=== PATIENT | female | born 1940 | race Caucasian/White ===

== ENCOUNTER 2019-08-16 15:07 | Inpatient (IN) | payer MEDICARE ==
[~2019-08-16] VITALS: Ht 175.3 cm; Wt 80.5 kg
--- OUTSIDE RECORDS SUMMARY | 2019-08-16 15:10 | XMS REPORT | Summary of Care ---
Author Author [facility] Organization [facility] Address Unknown Phone Unavailable Care Team Providers Care Geometrician Name Role Phone Ghassan Dillon PCP Yadira Florez MD Unavailable Unavailable Reason for Referral * Radiology Services (Routine) Referred By Contact Referred To Contact Status Reason Specialty Diagnoses / Procedures Yadira Florez MD [facility] [address] [address] [place], Radiology [address] [place] [id number] Pending Radiology Diagnoses CLL (chronic lymphocytic leukemia) P rocedures CT NECK W CONTRAST * Radiology Services (Routine) Referred By Contact Referred To Contact Status Reason Specialty Diagnoses / Procedures Yadira Florez MD [facility] [address], [address] [address] [place], Radiology [address] [place] [id number] Pending Radiology Diagnoses CLL (chronic lymphocytic leukemia) P rocedures CT CHEST ABDOMEN PELVIS W CONTRAST Reason for Visit * Reason Comments Follow Up Encounter Details Care Team Description Date Type Department Yadira Florez MD [facility] [address] [address] [phone] Follow Up 03/03/2019 Office Visit [facility] Hematology and Oncology [address] [place] [phone] Allergies Comments Active Allergy Reactions Severity Noted Date Reaction as child - not sure of reaction but thinks it was "asthma like" Sulfa Antibiotics Shortness Of High 06/20/2010 Breath Sulfasalazine Shortness Of High 08/30/2016 Breath documented as of this encounter (statuses as of 03/03/2019) Medications End Date Status Medication Sig Dispensed Refills Start Date Active Multiple Take by 0 Vitamins-Minerals mouth. (CENTRUM SILVER PO) Active metFORMIN 1000 MG TB24 Take 500 mg 0 by mouth two times daily. Active Cholecalciferol (VITAMIN Take 1 Tab by 0 D-3 OR) mouth daily. Active Iron TABS Take 65 mg by 0 mouth daily. Active [place] 3 1000 MG Take 1,000 mg 0 CAPSIndications: CLL by mouth (chronic lymphocytic daily. leukemia) Active metoprolol (TOPROL XL) 25 Take 1 Tab by 90 Tab 3 MG XL tabletIndications: mouth daily. 8 PAF (paroxysmal atrial fibrillation) Active Rivaroxaban 15 MG TABS Take 1 Tab by 90 Tab 1 mouth daily. 8 Active pravastatin (PRAVACHOL) 0 10 MG tablet 8 Active pantoprazole (PROTONIX) Take 1 Tab by 90 Tab 3 40 MG tablet mouth daily. 8 Active Take by 0 Qcddulur-Dvr-Yc-FA mouth daily. ( VITAMINS OR) Active digoxin (LANOXIN) 125 MCG TAKE ONE 30 Tab 2 tabletIndications: CLL TABLET BY 8 (chronic lymphocytic MOUTH ONE leukemia) TIME DAILY Active metoprolol (LOPRESSOR) 25 0 MG tablet 9 Active aspirin EC 81 MG TBEC Take 81 mg by 0 mouth. Active ferrous sulfate 325 (65 Take 325 mg 0 Fe) MG tablet by mouth daily. Active Insulin Detemir (LEVEMIR Inject 10 0 FLEXTOUCH) 100 UNIT/ML Units into 8 SOPN the skin. Active cyanocobalamin 100 MCG Take 100 mcg 0 tablet by mouth. 03/20/2019 Active VENCLEXTA 10 MG TABS Take 20 mg by 30 Tab 0 mouth daily 9 for 7 days, THEN 50 mg daily for 7 days, THEN 100 mg daily for 7 days, THEN 200 mg daily for 7 days, THEN 400 mg daily for 7 days. documented as of this encounter (statuses as of 03/03/2019) Active Problems Problem Noted Date Autoimmune hemolytic anemia 06/23/2016 CLL (chronic lymphocytic leukemia) 06/15/2016 Arthritis of knee, right 01/19/2016 Right knee DJD 01/19/2016 Follicular conjunctivitis 04/08/2014 Vitreous syneresis 04/08/2014 Diabetes mellitus type 2 without retinopathy 09/27/2012 Cataract 09/27/2012 Rash and nonspecific skin eruption 09/27/2012 Eye redness 09/27/2012 Dry eye syndrome 09/27/2012 Neurotic excoriations 09/27/2012 Asthma 09/23/2012 documented as of this encounter (statuses as of 03/03/2019) Social History Date Tobacco Use Types Packs/Day Years Used Quit: 09/23/1974 Former Smoker 1 10 Smokeless Tobacco: Former User Drinks/Week oz/Week Comments Alcohol Use 1 Glasses of wine 0.6 every three months Yes Sex Assigned at Date Recorded Not on file Industry Job Start Date Occupation Not on file Not on file Not on file Travel End Travel History Travel Start No recent travel history available. documented as of this encounter Last Filed Vital Signs Reading Time Taken Comments Vital Sign 156/93 03/03/2019 1:06 PM CDT Blood Pressure 101 03/03/2019 1:06 PM CDT Pulse 36.9 C (98.5 F) 03/03/2019 1:06 PM CDT Temperature - - Respiratory Rate - - Oxygen Saturation - - Inhaled Oxygen Concentration 80.3 kg (177 lb) 03/03/2019 1:06 PM CDT Weight 172.7 cm (5' 8") 03/03/2019 1:06 PM CDT Height 26.91 03/03/2019 1:06 PM CDT Body Mass Index documented in this encounter Patient Instructions * Patient Instructions* Yadira Florez MD - 03/03/2019 1:20 PM CDT RTC in 3 months with preclinic CBC., CMP scans and phos and uric acid levels. documented in this encounter Progress Notes * Yadira Florez MD - 03/03/2019 1:20 PM CDT FOLLOW-UP PATIENT VISIT NOTE [facility] RFC: CLL progression INTERIM HISTORY: feels about the same. Her cough is better overall with mucinex. Weight is stable, appetite good and overall in better spiritis. We learnt that the path demonstrates SLL only no Large cell transformation. P53 studies pending . HISTORY OF PRESENT ILLINESS: This is a 79 y.o. female with DM, HTN and a diagnos is of CLL since 2008 now on treatment for rapidly progresive disease 04/2009: noted on blood counts that she had a high WBC and noted to have CLL wit h trisomy 12 (standard CLL prognosis)on flow of blood. CT scans at the time note d lymph nodes in her abdomen and chest but Porter stage I so observed only (WBC nimco un 26). Last seen by Dr. Machado in 05/2014: was about 56 09/2015: Continued progression in WBCs now with counts of 99 and a decrease in Hb to 10.7. 01/2016: Had an uncomplicated knee replacement, however she never really recovere d her energy 05/2016: Saw PCP was told her WBC is much higher and that she should see [facility] [place] 06/15/16: WBC 186, Hb: 7 with high LDH and a slightly higher T. Bili, pending Co ombs test 06/28/16: Bone marrow exam: negative for transformation, involved with CLL, low iron stores 08/03/16: WBC back to baseline today at 97, and improved symptoms. She has done t he FOBT test but at a [facility] and we are looking for the results, Hb is also adrián r 09/01/16: Called to say her low energy is back and that she would like to increas e her prednisone as that seemed to help with her energy levels in the past. So w e increased to 40 mg a day from 20 mg a day 09/14/16: In clinic today with mild improvement in her energy levels but stil sinc e May has had lower energy levels. Her WBCs are well controlled and Hb is b pk to 9.6, but now she has an elevated glucose level concerning for steroid i nduced DM. 10/12/16: Has completely stopped taking the prednisone as her energy levels are b ack to baseline, also now has a normal platelt count and also Hb of about 10, an d a dropping WBC count 05/11/17: Relapsed AIHA along with a rapid increase in WBCs, started on predniso ne 60 /day and planned to start chemo within a week. 05/15/17: 90 mg/m2, single dose (50% reduction in dose for age and degree of ane debbie), tolerated very well, no TLS, off allopurinol now) 06/19/17: Started ibrutinib and in 10 days she developed A Fib with RVR needing C [facility] admission at [facility] 08/15/16: Switched back to bendamustine after she developed AFib on ibrutinib, re ceived R and 2 days kai 09/13/17: Cycle 3 of kai planned 10/11/17: Got cycle 3 of Kai-R. 10/17/17: Hospitalized for hypoglycemia, because she was taking glimeperide as us ual, she was not eating very much after chemotherapy. So she was treated with IV fluids, but discovered that her platelets were unusually low to 1-2 after kai chemo. So she was placed on prednisone 40 mg a day and had 2 doses of IVIg and 2- 3 units of platelet transfusions and also a blood transfusion. She was noted to have antibodies to platelets (GP IIb IIIa and HLA). Chemo Held 11/28/17: CT staging demonstrates a near CR, CBC demonstrates normal platelet cou nts and also rising Hb to 9.5 02/2018: tapering prednisone for autoimmune cytopenias and she is tolerating this well. 01/2019: Returns to clinic after a year away from us (work got in the way), with recurrent weight loss, Afib with RVR requiring hospital stay and a recurrent cou gh as well. Scans demosntrate low volume LAD relapse along with lymphangitic spr ead within the lungs. 02/03/19: Not anemic, symptoms are largely under control except for the cough. 02/26/19: Axillary node biopsy, flow had non viable cells, pathology negative for large cell disease PAST MEDICAL SURGICAL, SOCIAL AND FAMILY HISTORY remains unchanged MEDICATIONS: Current Outpatient Medications: aspirin EC 81 MG TBEC, Take 81 mg by mouth., Disp: , Rfl: Cholecalciferol (VITAMIN D-3 OR), Take 1 Tab by mouth daily., Disp: , Rfl: cyanocobalamin 100 MCG tablet, Take 100 mcg by mouth., Disp: , Rfl: digoxin (LANOXIN) 125 MCG tablet, TAKE ONE TABLET BY MOUTH ONE TIME DAILY , Disp: 30 Tab, Rfl: 2 ferrous sulfate 325 (65 Fe) MG tablet, Take 325 mg by mouth daily., Disp: , Rfl: Insulin Detemir (LEVEMIR FLEXTOUCH) 100 UNIT/ML SOPN, Inject 10 Units into the skin., Disp: , Rfl: Iron TABS, Take 65 mg by mouth daily., Disp: , Rfl: metFORMIN 1000 MG TB24, Take 500 mg by mouth two times daily., Disp: , Rfl: metoprolol (LOPRESSOR) 25 MG tablet, , Disp: , Rfl: metoprolol (TOPROL XL) 25 MG XL tablet, Take 1 Tab by mouth daily., Disp: 9 0 Tab, Rfl: 3 Multiple Vitamins-Minerals (CENTRUM SILVER PO), Take by mouth., Disp: , Rf l: [place] 3 1000 MG CAPS, Take 1,000 mg by mouth daily., Disp: , Rfl: pantoprazole (PROTONIX) 40 MG tablet, Take 1 Tab by mouth daily., Disp: 90 Tab, Rfl: 3 pravastatin (PRAVACHOL) 10 MG tablet, , Disp: , Rfl: Sjsmcapr-Mya-Gd-FA ( VITAMINS OR), Take by mouth daily., Disp: , Rfl: Rivaroxaban 15 MG TABS, Take 1 Tab by mouth daily., Disp: 90 Tab, Rfl: 1 VENCLEXTA 10 MG TABS, Take 20 mg by mouth daily for 7 days, THEN 50 mg tobias y for 7 days, THEN 100 mg daily for 7 days, THEN 200 mg daily for 7 days, THEN 4 00 mg daily for 7 days., Disp: 30 Tab, Rfl: 0 REVIEW OF SYSTEMS: CONSTITUTIONAL: denies fevers or chills, low energy levels, loss of weight to 30 lbs. HEAD AND NECK: denies headaches, no thyroid disease or swellings in the neck. EAR NOSE and THROAT: blurry vision from DM retinopathy with floaters, double vis ion, dysphagia, odynophagia. LYMPH NODES: Has not noted lymph node swellings in the neck, under the arms or i n the groin region. CARDIOVASCULAR: No chest pains, palpitations, occasional swelling of the feet, p aroxysmal nocturnal dyspnea noted. Wheezing noted and occasional coarse inspirat ions. RESPIRATORY: Occasional cough, no hemoptysis, occasionally shortness of breath, denies wheezing, no sleep apnea. ABDOMEN: No abdominal pains, nausea or vomiting, hematemesis. Denies melena, ble eding stools. No cramps or constipation. MUSCULOSKELETAL: Full range of movement across all joints, denies myalgias or jony int pains. Denies back or bone pains. EXTREMITIES: Now has mild increase in swelling in bilateral lower extremities. PHYSICAL EXAM: Vitals: 03/03/19 1306 BP: (!) 156/93 BP Location: left arm Patient Position: Sitting Pulse: 101 Temp: 98.5 F (36.9 C) TempSrc: Oral Weight: 177 lb (80.3 kg) Height: 5' 8" (1.727 m) GENERAL: Afebrile, alert and oriented to person, place and time, sitting comfort ably. EYES: Extraocular movements are intact, pupils are equal round and reactive to l ight and accomodation. Anicteric sclera, pallor 1+ LYMPH NODES: multiple palpable submental,cervical and supraclavicular LAD on tod ays exam is not enlarged CARDIOVASCULAR: S1 and S2 are heard and Irregular rate rythym. DESIRAE at the LUSB noted no rubs or gallops are heard. RESPIRATORY: Clear lungs to auscultation bilaterally, no rales, ++ rhonchi now p redominantly in the Left upper and lower lung bernstein, no rubs heard. GASTROINTESTINAL: No oral lesions, abdomen is non-tender, not distended, no flui d thrill. Palpable splenomegaly to 2 cm below the costal margin with mild hepato megaly noted today. Liver span is 12 cm. Bowel sounds are present. EXTREMITIES: No clubbing, cyanosis or no pitting edema noted. SKIN: No rashes, scars, ulcers or bruises noted MUSCULOSKELETAL: No knee crepitus, full range of motion at the elbows, knees and ankles noted. No spinal tenderness noted. ASSESSMENT: 79 year old lady with CLL Porter stage III (lymphadenopathy and mild an emia), DM and HTN. 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 She could not tolerate imbruvica because of RVR with A fib whi ch is an ongoing problem. Last visit she returned to see us with clear recurrenc e of symptoms for relapse. We then confirmed these findings with CT scans last w lumbee. Now we have done a biopsy to rule out p53 del disease, but so far has no la rge cell transformation. Despite her 40 lb weight loss and cough that might be r elated to the SLL, she would favor observation only without treatment with venet oclax.She thinks her current QOL is reasonable and is worried about the potentia l effects of venetoclax such as TLS. She now has drug that is approved. So we pl an on repeating Ct scans in 3 months and see her in clinic then. If she worsens or develops new symptoms she knows to contact us so that we can start treatment MIRANDA. Anemia: previously was AIHA, todays Hb pending, but was >11 in the hospital 1 week ago Cough: worry that this is from disease progression based on scans, yet we monica l see her back in 4 weeks to see if this has improved, in which case it could be because eof a lingering infection DM/HTN: continue management through her primary care physician. On insulin no w, but needs close monitoring of levels daily which she was not doing prior to h er hospitalization for the hypoglycemia. As we drop prednisone dose now I have i nstructed to lower the insulin dose based on daily monitoring numbers. A fib: Sees Dr. Turner, on Toprol and Dig and xarelto stable for now. Please check: CBC with diff, CMP, uric acid, magnesium, phosphorus and CT N/C/A/ P preclinic in 3 months. Yadira Florez MD Hematology/Oncology documented in this encounter Plan of Treatment Order Schedule Name Type Priority Associated Diagnoses 1 Occurrences starting 03/03/2019 until 03/03/2020 CT CHEST ABDOMEN PELVIS W Imaging Routine CLL (chronic lymphocytic CONTRAST leukemia) 1 Occurrences starting 03/03/2019 until 10/02/2019 CT NECK W CONTRAST Imaging Routine CLL (chronic lymphocytic leukemia) Health Maintenance Due Date Last Done Comments MEDICARE AWV 1940 TETANUS SHOT (ADULT) 02/03/1955 ANNUAL DIABETIC FOOT EXAM 02/03/1958 BMI FOLLOW UP PLAN 02/03/1958 FALL SCREEN 02/03/2005 OSTEOPOROSIS SCREENING 02/03/2005 PNEUMOVAX >=65 (PPSV23) 02/03/2005 PREVNAR >=65 (PCV13) 02/03/2005 ANNUAL DIABETIC 04/08/2015 04/08/2014, 09/27/2012 RETINOPATHY SCREENING FLU VACCINE > 6 MONTHS 02/13/2019 documented as of this encounter Results Not on filedocumented in this encounter Visit Diagnoses Diagnosis CLL (chronic lymphocytic leukemia) - Primary Chronic lymphoid leukemia, without mention of having achieved remission documented in this encounter Insurance Type Payer Benefit Subscriber ID Effective Phone Address Plan / Dates Group Medicare [employer] MEDICARE xxxxxxxx 2018-P [address] PPO - resent [id number] [place] [address] documented as of this encounter
--- OUTSIDE RECORDS SUMMARY | 2019-08-16 15:11 | XMS REPORT ---
[facility] Address Unknown Phone Unavailable Care Team Providers Care Earth Science Technician Name Role Phone MALIHA NAGY Unavailable Unavailable MONTY, ARIF Unavailable Unavailable LULLA, NALLELY PREMAL Unavailable Unavailable JAMAR DRAKE Unavailable Unavailable BEREKET PAIZ Unavailable Unavailable Alis WOODS Unavailable Unavailable Problems This patient has no known problems. Allergies, Adverse Reactions, Alerts This patient has no known allergies or adverse reactions. Medications This patient has no known medications. Results Test Description Test Time Test Comments Text Results Atomic Results Result Comments BLOOD CULTURE 2019-07-27 13:43:00 CULTURE (BEAKER) (test icqk=9268) No growth in 5 days SPUTUM CULTURE + GRAM [id number] 14:49:00* Test Item Value Reference Range Comments CULTURE (BEAKER) (test zsuw=5581) See comment GRAM STAIN RESULT (BEAKER) (test dblv=2773) 1+ WBCs GRAM STAIN RESULT (BEAKER) (test btab=32415) 0-5 epithelial cells GRAM STAIN RESULT (BEAKER) (test ovtd=202014) <1+ gram negative rods GRAM STAIN RESULT (BEAKER) (test hzzl=064987) <1+ gram negative coccobacilli GRAM STAIN RESULT (BEAKER) (test imez=014761) <1+ gram positive cocci in chains 2+ Normal respiratory fe presentPOCT-GLUCOSE [id number] 12:25:00* Test Item Value Reference Range Comments POC-GLUCOSE METER (BEAKER) (test ulqu=5860) 110 mg/dL 70-110 : TESTED AT [facility] [address] [facility], [address]: Marine Electrician/Pipe Smoking Machine Offbearer WQ=[id number] for RUBIO, SUELLEN POCT-GLUCOSE [id number] 07:51:00* Test Item Value Reference Range Comments POC-GLUCOSE METER (BEAKER) (test bvne=8977) 128 mg/dL 70-110 : TESTED AT [facility] [address] [facility], [address]: Marine Electrician/Pipe Smoking Machine Offbearer HP=[id number] for SUELLEN RUBIO POCT-GLUCOSE [id number] 22:53:00* Test Item Value Reference Range Comments POC-GLUCOSE METER (BEAKER) (test dthq=3183) 212 mg/dL 70-110 : TESTED AT [place] [id number] [facility], [address]: Marine Electrician/Pipe Smoking Machine Offbearer GI=[id number] for Shannon Fountain POCT-GLUCOSE [id number] 18:00:00* Test Item Value Reference Range Comments POC-GLUCOSE METER (BEAKER) (test pxmz=6838) 161 mg/dL 70-110 : TESTED AT [address], [address]: Marine Electrician/Pipe Smoking Machine Offbearer OY=[id number] for QUINN HUSSEIN POCT-GLUCOSE [id number] 13:48:00* Test Item Value Reference Range Comments POC-GLUCOSE METER (BEAKER) (test qpxb=0122) 130 mg/dL 70-110 : TESTED AT [address], [address]: Marine Electrician/Pipe Smoking Machine Offbearer YW=[id number] for QUINN HUSSEIN HEMOGLOBIN [id number] 10:40:00* Test Item Value Reference Range Comments HEMOGLOBIN A1C (BEAKER) (test qdwb=435) 6.9 % 4.3-6.1 POCT-GLUCOSE [id number] 07:50:00* Test Item Value Reference Range Comments POC-GLUCOSE METER (BEAKER) (test xlyn=0328) 127 mg/dL 70-110 : TESTED AT [address], [address]: Marine Electrician/Pipe Smoking Machine Offbearer OE=[id number] for MARCO LIVINGSTON BASIC METABOLIC [id number] 06:32:00* Test Item Value Reference Range Comments SODIUM (BEAKER) (test muaa=002) 140 meq/L 136-145 POTASSIUM (BEAKER) (test quqm=721) 4.3 meq/L 3.5-5.1 CHLORIDE (BEAKER) (test jncd=589) 104 meq/L 98-107 CO2 (BEAKER) (test vdsz=080) 29 meq/L 22-29 BLOOD UREA NITROGEN (BEAKER) (test tclv=100) 16 mg/dL 7-21 CREATININE (BEAKER) (test ihbp=595) 1.04 mg/dL 0.57-1.25 GLUCOSE RANDOM (BEAKER) (test lctr=588) 151 mg/dL 70-105 CALCIUM (BEAKER) (test cwyq=173) 9.0 mg/dL 8.4-10.2 EGFR (BEAKER) (test xyyh=7777) 62 mL/min/1.73 sq m ESTIMATED GFR IS NOT ACCURATE CREATININE CLEARANCE IN PREDICTING GLOMERULAR FILTRATION RATE. ESTIMATED GFR IS NOT APPLICABLE FOR DIALYSIS PATIENTS. CBC (HEMOGRAM ONLY)2019-07-23 05:32:00* Test Item Value Reference Range Comments WHITE BLOOD CELL COUNT (BEAKER) (test tund=923) 8.4 K/ L 3.5-10.5 RED BLOOD CELL COUNT (BEAKER) (test hsre=884) 4.37 M/ L 3.93-5.22 HEMOGLOBIN (BEAKER) (test fsum=186) 11.3 GM/DL 11.2-15.7 HEMATOCRIT (BEAKER) (test hmxg=612) 37.5 % 34.1-44.9 MEAN CORPUSCULAR VOLUME (BEAKER) (test lbgf=555) 85.8 fL 79.4-94.8 MEAN CORPUSCULAR HEMOGLOBIN (BEAKER) (test fmhn=287) 25.9 pg 25.6-32.2 MEAN CORPUSCULAR HEMOGLOBIN CONC (BEAKER) (test lvfe=704) 30.1 GM/DL 32.2-35.5 RED CELL DISTRIBUTION WIDTH (BEAKER) (test mjag=648) 15.1 % 11.7-14.4 PLATELET COUNT (BEAKER) (test iwne=790) 204 K/CU MM 150-450 MEAN PLATELET VOLUME (BEAKER) (test dfwe=966) 12.5 fL 9.4-12.3 NUCLEATED RED BLOOD CELLS (BEAKER) (test fokn=945) 0 /100 WBC 0-0 POCT-GLUCOSE [id number] 21:35:00* Test Item Value Reference Range Comments POC-GLUCOSE METER (BEAKER) (test ueoh=8719) 151 mg/dL 70-110 : TESTED AT [facility] [address] [facility], [address]: Marine Electrician/Pipe Smoking Machine Offbearer IC=[id number] for Shannon Fountain POCT-GLUCOSE [id number] 18:09:00* Test Item Value Reference Range Comments POC-GLUCOSE METER (BEAKER) (test qdop=7623) 125 mg/dL 70-110 : TESTED AT [facility] [address] [facility], [address]: Marine Electrician/Pipe Smoking Machine Offbearer QD=[id number] for QUINN HUSSEIN RESPIRATORY PANEL [id number] 15:12:00* Test Item Value Reference Range Comments HUMAN METAPNEUMOVIRUS (BEAKER) (test zttl=1272) Not detected Not detected, Equivocal RHINOVIRUS (BEAKER) (test xpsc=5494) Not detected Not detected, Equivocal INFLUENZA A (BEAKER) (test ozbv=2558) Not detected Not detected, Equivocal INFLUENZA A (NO SUBTYPE) (test hznr=4486) INFLUENZA A SUBTYPE H1 (BEAKER) (test jyif=2546) INFLUENZA A SUBTYPE H3 (BEAKER) (test mwva=4900) INFLUENZA A SUBTYPE H1-2009 (BEAKER) (test bwcc=7755) INFLUENZA B (BEAKER) (test chgi=7750) Not detected Not detected, Equivocal RESPIRATORY SYNCYTIAL VIRUS (BEAKER) (test zjhy=8918) Not detected Not detected, Equivocal PARAINFLUENZA VIRUS 1 (BEAKER) (test zfoq=8537) Not detected Not detected, Equivocal PARAINFLUENZA VIRUS 2 (BEAKER) (test ntuk=1317) Not detected Not detected, Equivocal PARAINFLUENZA VIRUS 3 (BEAKER) (test clom=4086) Not detected Not detected, Equivocal PARAINFLUENZA VIRUS 4 (BEAKER) (test dldd=5964) Not detected Not detected, Equivocal ADENOVIRUS (BEAKER) (test rwxw=8086) Not detected Not detected, Equivocal CORONAVIRUS 229E (BEAKER) (test qmql=3651) Not detected Not detected, Equivocal CORONAVIRUS HKU1 (BEAKER) (test wsma=1172) Not detected Not detected, Equivocal CORONAVIRUS NL63 (BEAKER) (test vcqa=3561) Not detected Not detected, Equivocal CORONAVIRUS OC43 (BEAKER) (test cvqu=3730) Not detected Not detected, Equivocal BORDETELLA PERTUSSIS (BEAKER) (test lkbe=6465) Not detected Not detected, Equivocal CHLAMYDOPHILA PNEUMONIAE (BEAKER) (test djeo=5821) Not detected Not detected, Equivocal MYCOPLASMA PNEUMONIAE (BEAKER) (test cdsh=1337) Not detected Not detected, Equivocal Other viruses and bacteria not targeted by this PCR panel cannot be excluded; th erefore clinical correlation and follow up of serology, culture results, and oth er molecular studies is required. The results are not intended to be used as the sole means for clinical diagnosis or patient management decisions. This sample was tested at the [facility] Molecular Diagnostics Laboratory using the [employer] FilmA rray Respiratory Panel. It is FDA cleared and has been verified and approved by the [facility] Molecular Diagnostics Laboratory for clinical use on nasopharyngeal sw ab specimens.The performance of the FilmArray RP has not been established in ind ividuals who received influenza vaccine. Recent administration of a nasal influ stacie vaccine may cause false positive results for Influenza A and/orInfluenza B. POCT-GLUCOSE [id number] 14:27:00* Test Item Value Reference Range Comments POC-GLUCOSE METER (BEAKER) (test cneu=7028) 145 mg/dL 70-110 : TESTED AT [facility] [address] [facility], [address]: Marine Electrician/Pipe Smoking Machine Offbearer QC=[id number] for LIN MUNIZ POCT-GLUCOSE [id number] 11:59:00* Test Item Value Reference Range Comments POC-GLUCOSE METER (BEAKER) (test dyxc=4064) 185 mg/dL 70-110 : TESTED AT [facility] [address] [facility], [address]: Marine Electrician/Pipe Smoking Machine Offbearer HI=[id number] for LUCIO EATON BLOOD GAS, [id number] 06:07:00* Test Item Value Reference Range Comments PH VENOUS (BEAKER) (test qypf=912) 7.42 7.32-7.42 PCO2 VENOUS (BEAKER) (test orhi=392) 52 mmHg 41-51 PO2 VENOUS (BEAKER) (test tpnw=253) 15 mmHg 25-40 O2 SATURATION VENOUS (BEAKER) (test zcnk=609) 19.3 % 40.0-70.0 HCO3 VENOUS (BEAKER) (test pumt=837) 33 mmol/L 21-29 BASE EXCESS VENOUS (BEAKER) (test lqln=785) 7.1 mmol/L -2.0-3.0 PATIENT TEMPERATURE (BEAKER) (test xhbk=4879) 37.0 C FIO2 (BEAKER) (test mchh=5263) 100.0 % LACTIC ACID, [id number] 23:35:00* Test Item Value Reference Range Comments LACTATE BLOOD VENOUS (2) (BEAKER) (test uagn=4410) 1.0 mmol/L 0.5-2.2 Specimen slightly hemolyzed B-TYPE NATRIURETIC FACTOR (BNP)2019-07-21 23:28:00* Test Item Value Reference Range Comments B-TYPE NATRIURETIC PEPTIDE (BEAKER) (test qkmi=653) 157 pg/mL 0-100 TROPONIN [id number] 23:28:00* Test Item Value Reference Range Comments TROPONIN I (BEAKER) (test evii=925) < ng/mL 0.00-0.03 Troponin I (TnI) levels must be interpreted in the context of the presenting sym ptoms and the clinical findings. Elevated TnI levels indicate myocardial damage, but are not specific for ischemic heart disease. Elevated TnI levels are seen in patients with other cardiac conditions (including myocarditis and congestive h eart failure), and slight TnI elevations occur in patients with other conditions , including sepsis, renal failure, acidosis, acute neurological disease, and per sistent tachyarrhythmia.BASIC METABOLIC [id number] 23:19:00* Test Item Value Reference Range Comments SODIUM (BEAKER) (test yrgm=539) 141 meq/L 136-145 POTASSIUM (BEAKER) (test lhgg=561) 4.1 meq/L 3.5-5.1 CHLORIDE (BEAKER) (test agfl=614) 105 meq/L 98-107 CO2 (BEAKER) (test mptv=303) 29 meq/L 22-29 BLOOD UREA NITROGEN (BEAKER) (test cuci=272) 12 mg/dL 7-21 CREATININE (BEAKER) (test olud=770) 1.12 mg/dL 0.57-1.25 GLUCOSE RANDOM (BEAKER) (test cqrq=817) 196 mg/dL 70-105 CALCIUM (BEAKER) (test htqc=602) 9.7 mg/dL 8.4-10.2 EGFR (BEAKER) (test ocht=8876) 57 mL/min/1.73 sq m ESTIMATED GFR IS NOT ACCURATE CREATININE CLEARANCE IN PREDICTING GLOMERULAR FILTRATION RATE. ESTIMATED GFR IS NOT APPLICABLE FOR DIALYSIS PATIENTS. PROTHROMBIN TIME/[id number] 23:16:00* Test Item Value Reference Range Comments PROTIME (BEAKER) (test zika=994) 17.2 seconds 11.9-14.2 INR (BEAKER) (test amhx=276) 1.5 <=5.9 Effective 12/11/2018: PT Reference Range ChangeNew: 11.9-14.2 Previous: 11.7-14. 7RECOMMENDED COUMADIN/WARFARIN INR THERAPY RANGESSTANDARD DOSE: 2.0-3.0 Include s: PROPHYLAXIS for venous thrombosis, systemic embolization; TREATMENT for venou s thrombosis and/or pulmonary embolus.HIGH RISK: Target INR is 2.5-3.5 for patie nts wiht mechanical heart valves.CBC W/PLT COUNT & AUTO [id number] 22:59:00* Test Item Value Reference Range Comments WHITE BLOOD CELL COUNT (BEAKER) (test ssbm=107) 10.7 K/ L 3.5-10.5 RED BLOOD CELL COUNT (BEAKER) (test fwpu=442) 4.65 M/ L 3.93-5.22 HEMOGLOBIN (BEAKER) (test nkrb=855) 12.2 GM/DL 11.2-15.7 HEMATOCRIT (BEAKER) (test ftun=157) 39.5 % 34.1-44.9 MEAN CORPUSCULAR VOLUME (BEAKER) (test dmkp=965) 84.9 fL 79.4-94.8 MEAN CORPUSCULAR HEMOGLOBIN (BEAKER) (test qrxz=985) 26.2 pg 25.6-32.2 MEAN CORPUSCULAR HEMOGLOBIN CONC (BEAKER) (test yzzx=647) 30.9 GM/DL 32.2-35.5 RED CELL DISTRIBUTION WIDTH (BEAKER) (test zeic=514) 15.2 % 11.7-14.4 PLATELET COUNT (BEAKER) (test qpnj=601) 244 K/CU MM 150-450 MEAN PLATELET VOLUME (BEAKER) (test nucm=003) 12.3 fL 9.4-12.3 NUCLEATED RED BLOOD CELLS (BEAKER) (test gqjc=092) 0 /100 WBC 0-0 NEUTROPHILS RELATIVE PERCENT (BEAKER) (test aepr=527) 50 % LYMPHOCYTES RELATIVE PERCENT (BEAKER) (test rkqs=524) 35 % MONOCYTES RELATIVE PERCENT (BEAKER) (test verr=304) 11 % EOSINOPHILS RELATIVE PERCENT (BEAKER) (test rebl=547) 4 % BASOPHILS RELATIVE PERCENT (BEAKER) (test cwja=239) 1 % NEUTROPHILS ABSOLUTE COUNT (BEAKER) (test slmz=150) 5.38 K/ L 1.56-6.13 LYMPHOCYTES ABSOLUTE COUNT (BEAKER) (test nqcb=732) 3.73 K/ L 1.18-3.74 MONOCYTES ABSOLUTE COUNT (BEAKER) (test twtq=767) 1.14 K/ L 0.24-0.36 EOSINOPHILS ABSOLUTE COUNT (BEAKER) (test wedy=109) 0.37 K/ L 0.04-0.36 BASOPHILS ABSOLUTE COUNT (BEAKER) (test tbjn=148) 0.05 K/ L 0.01-0.08 IMMATURE GRANULOCYTES-RELATIVE PERCENT (BEAKER) (test panv=7519) 1 % 0-1 RAD, CHEST, 2 [id number] 22:05:00Reason for exam:->COUGHShould this be performed at the bedside?->NoFINAL REPORT PA and Lateral views of the chest dated 07/21/2019 Clinical information: COUGH Comment: Heart is normal in size. Pulmonary vasculature is unremarkable. Airspace disease is seen in the left lower lobe consistent with pneumonia. The rest of the lungs are clear. No pleural effusion is present. Impression: Left lower lobe pneumonia. Signed: Jamar Zimmerman Verified Date/Time: 07/21/2019 22:05:32 Reading Location: [facility] [id number] Consult Reading Room W/PLT COUNT & AUTO DIFFERENTIAL 2019-04-21 15:06:00* Test Item Value Reference Range Comments WHITE BLOOD CELL COUNT (BEAKER) (test kqqa=931) 11.0 K/ L 3.5-10.5 RED BLOOD CELL COUNT (BEAKER) (test blel=255) 5.01 M/ L 3.93-5.22 HEMOGLOBIN (BEAKER) (test yfcr=330) 12.9 GM/DL 11.2-15.7 HEMATOCRIT (BEAKER) (test snts=988) 41.6 % 34.1-44.9 MEAN CORPUSCULAR VOLUME (BEAKER) (test rtul=851) 83.0 fL 79.4-94.8 MEAN CORPUSCULAR HEMOGLOBIN (BEAKER) (test uxqr=141) 25.7 pg 25.6-32.2 MEAN CORPUSCULAR HEMOGLOBIN CONC (BEAKER) (test nlih=545) 31.0 GM/DL 32.2-35.5 RED CELL DISTRIBUTION WIDTH (BEAKER) (test aqef=066) 14.9 % 11.7-14.4 PLATELET COUNT (BEAKER) (test awnu=052) 212 K/CU MM 150-450 MEAN PLATELET VOLUME (BEAKER) (test mzej=154) 12.4 fL 9.4-12.3 NUCLEATED RED BLOOD CELLS (BEAKER) (test vuiy=142) 0 /100 WBC 0-0 (CELLAVISION MANUAL DIFF)2019-04-21 15:06:00* Test Item Value Reference Range Comments NEUTROPHILS - REL (CELLAVISION)(BEAKER) (test qroy=9028) 46 % LYMPHOCYTES - REL (CELLAVISION)(BEAKER) (test tviq=2021) 31 % MONOCYTES - REL (CELLAVISION)(BEAKER) (test oqcx=9765) 6 % EOSINOPHILS - REL (CELLAVISION)(BEAKER) (test hcoi=5405) 3 % BASOPHILS - REL (CELLAVISION)(BEAKER) (test hfrh=8874) 1 % BANDS - REL (CELLAVISION)(BEAKER) (test wnqj=9184) 1 % 0-10 ATYPICAL LYMPHOCYTES - REL (CELLAVISION)(BEAKER) (test rpwi=0702) 12 % 0-0 NEUTROPHILS - ABS (CELLAVISION)(BEAKER) (test kjwq=4404) 5.06 K/ul 1.56-6.13 LYMPHOCYTES - ABS (CELLAVISION)(BEAKER) (test kdxg=8165) 3.41 K/ul 1.18-3.74 MONOCYTES - ABS (CELLAVISION)(BEAKER) (test emwz=8532) 0.66 K/uL 0.24-0.36 EOSINOPHILS - ABS (CELLAVISION)(BEAKER) (test hdfw=9282) 0.33 K/uL 0.04-0.36 BASOPHILS - ABS (CELLAVISION)(BEAKER) (test anzn=2839) 0.11 K/uL 0.01-0.08 BANDS - ABS (CELLAVISION)(BEAKER) (test gvnx=4774) 0.11 K/uL 0.00-0.80 ATYPICAL LYMPHOCYTES - ABS (CELLAVISION)(BEAKER) (test ekmj=3366) 1.32 K/uL 0.00-0.00 TOTAL COUNTED (BEAKER) (test gquh=5229) 100 WBC MORPHOLOGY (BEAKER) (test ssrw=090) Normal GIANT PLATELETS (BEAKER) (test ubwm=931) Present POIKILOCYTES (BEAKER) (test hqed=592) 1+ few ELLIPTOCYTES (BEAKER) (test xlhh=210) 1+ few OVALOCYTES (BEAKER) (test zmzy=460) 1+ few ARTIFACT (CELLAVISION)(BEAKER) (test siwl=9260) Present PLATELET CONCENTRATION (CELLAVISION)(BEAKER) (test ijpk=1643) Adequate Received comment: User comments: Slide comments: TROPONIN [id number] 15:00:00* Test Item Value Reference Range Comments TROPONIN I (BEAKER) (test tayz=333) < ng/mL 0.00-0.03 Troponin I (TnI) levels must be interpreted in the context of the presenting sym ptoms and the clinical findings. Elevated TnI levels indicate myocardial damage, but are not specific for ischemic heart disease. Elevated TnI levels are seen in patients with other cardiac conditions (including myocarditis and congestive h eart failure), and slight TnI elevations occur in patients with other conditions , including sepsis, renal failure, acidosis, acute neurological disease, and per sistent tachyarrhythmia.B-TYPE NATRIURETIC FACTOR (BNP)2019-04-21 15:00:00* Test Item Value Reference Range Comments B-TYPE NATRIURETIC PEPTIDE (BEAKER) (test lnii=754) 181 pg/mL 0-100 RAPID INFLUENZA A&B [id number] 14:54:00* Test Item Value Reference Range Comments RAPID INFLUENZA A AG (BEAKER) (test ozfi=8098) Negative Negative, Inconclusive RAPID INFLUENZA B AG (BEAKER) (test htyz=7214) Negative Negative, Inconclusive [id number] 14:53:00* Test Item Value Reference Range Comments MAGNESIUM (BEAKER) (test rayh=908) 1.6 mg/dL 1.6-2.6 Specimen slightly hemolyzed BASIC METABOLIC [id number] 14:53:00* Test Item Value Reference Range Comments SODIUM (BEAKER) (test uxdn=661) 141 meq/L 136-145 POTASSIUM (BEAKER) (test evde=103) 4.3 meq/L 3.5-5.1 Specimen slightly hemolyzed CHLORIDE (BEAKER) (test cjew=948) 106 meq/L 98-107 CO2 (BEAKER) (test cnog=003) 27 meq/L 22-29 BLOOD UREA NITROGEN (BEAKER) (test blxa=588) 13 mg/dL 7-21 CREATININE (BEAKER) (test glsp=923) 1.11 mg/dL 0.57-1.25 Specimen slightly hemolyzed GLUCOSE RANDOM (BEAKER) (test zdcz=761) 146 mg/dL 70-105 CALCIUM (BEAKER) (test fbus=769) 10.0 mg/dL 8.4-10.2 EGFR (BEAKER) (test jlwy=3353) 57 mL/min/1.73 sq m ESTIMATED GFR IS NOT ACCURATE CREATININE CLEARANCE IN PREDICTING GLOMERULAR FILTRATION RATE. ESTIMATED GFR IS NOT APPLICABLE FOR DIALYSIS PATIENTS. CREATINE KINASE (CK)2019-04-21 14:53:00* Test Item Value Reference Range Comments CREATINE KINASE TOTAL (BEAKER) (test type=818) 43 U/L 29-200 PT/[id number] 14:43:00* Test Item Value Reference Range Comments PROTIME (BEAKER) (test ammf=739) 18.5 seconds 11.9-14.2 INR (BEAKER) (test tvpg=441) 1.6 <=5.9 PARTIAL THROMBOPLASTIN TIME (BEAKER) (test dhry=014) 33.6 seconds 22.5-36.0 Effective 12/11/2018: PT Reference Range ChangeNew: 11.9-14.2 Previous: 11.7-14. 7RECOMMENDED COUMADIN/WARFARIN INR THERAPY RANGESSTANDARD DOSE: 2.0-3.0 Include s: PROPHYLAXIS for venous thrombosis, systemic embolization; TREATMENT for venou s thrombosis and/or pulmonary embolus.HIGH RISK: Target INR is 2.5-3.5 for patie nts wiht mechanical heart valves.RAD, CHEST, 1 VIEW, NON [id number] 14:21:00 Reason for exam:->SHORTNESS OF BREATHFINAL REPORT INDICATION: SHORTNESS OF BREATH COMPARISON: January 09, 2019 TECHNIQUE: Single frontal view of the chest. FINDINGS: Lungs and pleura: Clear lungs. No effusion.Heart and mediastinum: Normal heart size. Unremarkable mediastinal contours.Osseous structures: No acute abnormality.Other: None. IMPRESSION: No acute intrathoracic abnormality. Signed: JR Velasco Robert MDReport Verified Date/Time: 04/21/2019 14:21:05 Reading Location: [facility] Radiology Reading Room UE [id number] 14:28:00Surgical Pathology Report Case: [id number] Authorizing Provider: Yadira Florez MD Collected: 02/26/2019 1257 Ordering Location: 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 Signing Pathologist Direct Phone Line: [phone] signed by Erich Tse MD on 03/03/2019 at 2:28 PMHistological sections demonstrate a core needle biopsy of lymphoid tissue involved by malignant ly mphoma. The lymphoma cells are small in size and vague proliferation centers are identified. Immunohistochemical studies performed on block A1 demonstrate the n eoplastic cells to be positive for CD20, CD5, CD23, and BCL2. Proliferative inde x by ki-67 is approximately 10%. They neoplastic cells are negative for CD10, BC L6, cyclin D1 and CD3.The morphologic and immunophenotypic findings are those of small lymphocytic lymphoma/chronic lymphocytic leukemia. There is no morphologic evidence of a large cell transformation, however the sampled material may not be fully wireless sales representative. If there is a strong clinical concern for large cell tr ansformation, an excisional biopsy may be warranted as the sampled material may not be fully wireless sales representative.89158, 04724, 33696a9, 77914eahfbbtbwoofutsEgmrl axi llaReceived in formalin labeled "right axillary lymph node" consists of one luo- white tissue fragment measuring 1 cm in length and 0.1 cm in diameter. The spec imen is submitted entirely in cassette A1. ?/bc Performed. The interpretation o f this case included the use of immunohistochemistry or special stains.BLOCK A1- CD20, CD5, CD3, CYCLIN D1, CD23, BCL2, BCL6, CD10, KI-67Control Slides Examined: In-house known positive controls were evaluated along with the test tissue. These control slides run alongside of the patients sample show appropriate stain ing. Internal positive and negative controls when available are evaluated Immuno histochemistry technical testing was performed at [facility], Pathology Laboratory where it was developed and its performance characterist ics were determined. It has not been cleared or approved by the U.S. Food and Dr ug Administration. The FDA has determined that such clearance or approval is not necessary. The test is used for clinical purposes. It should not be regarded as investigational or for research. This laboratory is certified under the Clinical Laboratory Improvement Amendments of 1988 (CLIA-88) as qualified to perform high complexity clinical laboratory testing.FLOW CYTOMETRY [id number] 13:37:00* Test Item Value Reference Range Comments FLOW CYTOMETRY RESULT POINTER (KORY) (test vnnt=3746) See Separate Report FLOW CYTOMETRY AP CASE # (KORY) (test zrap=0753) [id number] FLOW [id number] 11:22:00Flow Cytometry Report Case: [id number] Authorizing Provider: Yadira Florez MD Collected: 02/26/2019 1254 Ordering Location: [facility] Radiology Main Received: 02/26/2019 1436 Pathologist: Erich Tse MD Specimen: Other RIGHT AXILLARY LYMPH NODE, FLOW CYTOMETRY:STUDY IS LIMITED BY LOW VIABILITY AND LOW CELLULARITY.CORRELATION WITH MORPHOLOGIC FINDINGS IS REQUIRED. [id number] axillary lymph node CD8, surface-kappa, CD56, surface-lambda, CD5, CD19, CD10, CD3, CD20, CD4, [id number] Viability: 46.4% Blasts: Not identified.Lymphocytes: Bright CD45+ lymphocytes comprise 17.9% of total cells. T cells show a CD4:CD8 ratio of 1.0. B cells are virtually absent. Myeloid/monocytic populations: As identified by CD45 and light scatter characteristics, granulocytes comprise the majority of cells analyzed, and monocytes comprise 2.9% of total cells. The remaining events analyzed represent nonviable cells, non-hematolymphoid cells, and/or debris. These tests were developed and their performance characteristics determined by [facility]. They have not been cleared or approved by the [place] Food and Drug Administration. The FDA has determined that such clearance or approval is not necessary. It should not be regarded as investigational or for research. This laboratory is certified under the Clinical Laboratory Improvement Amendments of 1988 ("CLIA") as qualified to perform high-complexity clinical testing.U/S, CORE [id number] 14:20:00US guided soft tissue biopsy Reason for Exam:->C91.90FINAL REPORT Ultrasound guided lymph node core biopsy, 02/26/2019. Clinical History: Right axillary adenopathy, history of CLL. Modality: Ultrasound. Sedation: None. Escort Blind: Mary. Land Surveyor Manager: Candida. Estimated Blood Loss: 2cc. Specimen: 4 20-gauge core biopsy specimens, placed in formalin and RPMI and sent to pathology. Technique: Informed consent was obtained. The risks of pain, bleeding, infection, injury to lymph node/adjacent structures, transfusion risks, moderate sedation risks, and adverse medication reactions were discussed with the patient. After informed consent was obtained, the patient's right axilla was scanned with the patient in the left lateral decubitus position. A 1.9 x 0.9 cm right axillary lymph node was identified. After the skin was prepped and draped in the usual sterile manner, the area was anesthetized with 2% lidocaine. After a small skin incision was made, a 20 gauge compression core biopsy needle was advanced into the lymph node, under direct sonographic observation. 4 passes were made with 4 core biopsy specimens obtained. Post procedure sonographic evaluation of the area reveals no hematoma. The patient tolerated the procedure well, without immediate complications. Patient Disposition: The patient was sent in good condition to the observation area for vital sign monitoring and bed rest. Impression: Successful and uncomplicated ultrasound guided right axillary lymph node core biopsy. Signed: Indra Hernandez MDReport Verified Date/Time: 02/26/2019 14:20:11 Reading Location: [facility] P[address] [facility] Body Reading Room , [id number] 15:07:00FINAL REPORT EXAM: CT Chest, Abdomen and Pelvis WITH contrast INDICATION: LEUKEMIA COMPARISON: CT chest abdomen pelvis 11/29/2017TECHNIQUE: Chest, abdomen and pelvis were scanned utilizing a multidetector helical scanner from the lung apex to the pubic symphysis after administration of IV contrast. Coronal and sagittal reformations were obtained. Routine protocol was performed. Scan was performed when during portal venous phase. IV CONTRAST: 100 mL of Isovue 300 ORAL CONTRAST: Water COMPLICATIONS: None RADIATION DOSE: Total DLP: 634.64 mGy*cm Estimated effective dose: (DLP x 0.015 x size factor) mSv CTDIvol has been reviewed. It is below the limits set by the Radiation Protocol Committee (RPC). Dose reduction techniques used: Automated exposure control, adjustment of the mAs and/or kVp according to patient size, standardized low-dose protocol, and/or iterative reconstruction technique. FI NDINGS: LINES and TUBES: None. LUNGS AND AIRWAYS: Multiple tiny pulmonary nodul es with apical predominance is again seen and grossly unchanged.2.8 mm in the ri ght upper lobe (image 22).8 mm groundglass nodule (image 23). New right lower lo be consolidation with nodules in the lymphangitic/bronchovascular distribution i n the right lower lobe (image 85). Airways are normal. PLEURA: Tiny bilateral pleural effusions, right greater than left. HEART AND MEDIASTINUM: The thyroid g land is normal. The heart is normal in size. There is a small pericardial eff usion. Main pulmonary artery measures 3.6 cm. Ascending aorta measures 3.3 c m. New multiple small bilateral axillary lymph nodes.*0.8 cm on the right (image 13).Multiple enlarging mediastinal lymph nodes.*1.3 cm precarinal lymph node (i mage 24) previously 1.0 cm.*1.9 cm subcarinal lymph node (image 28). Previously 0.8 cm.Bilateral calcified hilar lymph nodes. Six lymph node prominence in the r ight hilar region. HEPATOBILIARY: No focal hepatic lesions. No biliary js elijah dilation. GALLBLADDER: Stable multiple large mobile stones. No wall thicke naila. SPLEEN: Increasing liver size. Spleen measures 13.2 cm in AP dimension. Pr eviously 12.3 cm. There are multiple hypodense lesions within the spleen that ar e more noticeable. 1.9 cm (image 54). PANCREAS: No focal masses or ductal dilat ation. ADRENALS: No adrenal nodules KIDNEYS/URETERS: Kidneys enhance symme trically. No hydronephrosis. No cystic or solid mass lesions. No stones. GI TR ACT: No abnormal distention, wall thickening, or evidence of bowel obstruction. Appendix is normal. PELVIC ORGANS/BLADDER: Unremarkable. LYMPH NODES: Incr easing size of multiple retroperitoneal lymphadenopathy. 1.2 cm aortocaval lymph node (image 72). Previously 1.1 cm. Multiple left periaortic lymph nodes at the level of the renal vein, now measuring 2.7 x 3.6 cm VESSELS: There is mild athe rosclerotic disease in the aorta and major arterial branches. PERITONEUM / RETRO PERITONEUM: No free air or fluid. BONES: There are degenerative changes in the l umbar spine. Mild mottled appearance of the thoracolumbar spine remain grossly u nchanged. SOFT TISSUES: Unremarkable. IMPRESSION: 1.Increasing lymph adenopathy in the bilateral axilla, especially in the mediastinum and the retrop eritoneum, consistent with worsening leukemia.2.New consolidation the right lowe r lobe with lymphangitic tissue lesion, concerning for leukemia.3.Enlarging sple en with numerous lesions, likely leukemia.4.Mottled appearance of the thoracolum bar spine, also likely related to leukemia. Signed: Raymond Ogden MDReport Wayne Mace ate/Time: 01/28/2019 15:07:11 Reading Location: [facility] Reading Room [address] [place] [address] , CHEST, WITH IV [id number] 15:07:00FINAL REPORT EXAM: CT Chest, Abdomen and Pelvis WITH contrast INDICATION: LEUKEMIA COMPARISON: CT chest abdomen pelvis 11/29/2017TECHNIQUE: Chest, abdomen and pelvis were scanned utilizing a multidetector helical scanner from the lung apex to the pubic symphysis after administration of IV contrast. Coronal and sagittal reformations were obtained. Routine protocol was performed. Scan was performed when during portal venous phase. IV CONTRAST: 100 mL of Isovue 300 ORAL CONTRAST: Water COMPLICATIONS: None RADIATION DOSE: Total DLP: 634.64 mGy*cm Estimated effective dose: (DLP x 0.015 x size factor) mSv CTDIvol has been reviewed. It is below the limits set by the Radiation Protocol Committee (RPC). Dose reduction techniques used: Automated exposure control, adjustment of the mAs and/or kVp according to patient size, standardized low- dose protocol, and/or iterative reconstruction technique. FINDINGS: LINES and TUBES: None. LUNGS AND AIRWAYS: Multiple tiny pulmonary nodules with apical predominance is again seen and grossly unchanged.2.8 mm in the right upper lobe (image 22).8 mm groundglass nodule (image 23). New right lower lobe consolidation with nodules in the lymphangitic/bronchovascular distribution in the right lower lobe (image 85). Airways are normal. PLEURA: Tiny bilateral pleural effusions, right greater than left. HEART AND MEDIASTINUM: The thyroid g land is normal. The heart is normal in size. There is a small pericardial eff usion. Main pulmonary artery measures 3.6 cm. Ascending aorta measures 3.3 c m. New multiple small bilateral axillary lymph nodes.*0.8 cm on the right (image 13).Multiple enlarging mediastinal lymph nodes.*1.3 cm precarinal lymph node (i mage 24) previously 1.0 cm.*1.9 cm subcarinal lymph node (image 28). Previously 0.8 cm.Bilateral calcified hilar lymph nodes. Six lymph node prominence in the r ight hilar region. HEPATOBILIARY: No focal hepatic lesions. No biliary js elijah dilation. GALLBLADDER: Stable multiple large mobile stones. No wall thicke naila. SPLEEN: Increasing liver size. Spleen measures 13.2 cm in AP dimension. Pr eviously 12.3 cm. There are multiple hypodense lesions within the spleen that ar e more noticeable. 1.9 cm (image 54). PANCREAS: No focal masses or ductal dilat ation. ADRENALS: No adrenal nodules KIDNEYS/URETERS: Kidneys enhance symme trically. No hydronephrosis. No cystic or solid mass lesions. No stones. GI TR ACT: No abnormal distention, wall thickening, or evidence of bowel obstruction. Appendix is normal. PELVIC ORGANS/BLADDER: Unremarkable. LYMPH NODES: Incr easing size of multiple retroperitoneal lymphadenopathy. 1.2 cm aortocaval lymph node (image 72). Previously 1.1 cm. Multiple left periaortic lymph nodes at the level of the renal vein, now measuring 2.7 x 3.6 cm VESSELS: There is mild athe rosclerotic disease in the aorta and major arterial branches. PERITONEUM / RETRO PERITONEUM: No free air or fluid. BONES: There are degenerative changes in the l umbar spine. Mild mottled appearance of the thoracolumbar spine remain grossly u nchanged. SOFT TISSUES: Unremarkable. IMPRESSION: 1.Increasing lymph adenopathy in the bilateral axilla, especially in the mediastinum and the retrop eritoneum, consistent with worsening leukemia.2.New consolidation the right lowe r lobe with lymphangitic tissue lesion, concerning for leukemia.3.Enlarging sple en with numerous lesions, likely leukemia.4.Mottled appearance of the thoracolum bar spine, also likely related to leukemia. Signed: Raymond Ogden Verified D ate/Time: 01/28/2019 15:07:11 Reading Location: [facility] Reading Room [address] [place] [address] -[id number] 14:23:00* Test Item Value Reference Range Comments POC-CREATININE (BEAKER) (test ebyq=3858) 1.1 mg/dL 0.6-1.3 TESTED AT [facility] [address] [facility] [address] [facility] [address] POC-EGFR (BEAKER) (test jutu=8193) 58 mL/min/1.73M2 SPUTUM CULTURE + GRAM [id number] 08:12:00* Test Item Value Reference Range Comments CULTURE (BEAKER) (test qaeq=5076) 4+ Normal respiratory fe present GRAM STAIN RESULT (BEAKER) (test givo=0637) <1+ White blood cells seen GRAM STAIN RESULT (BEAKER) (test qcpw=24848) 0-5 epithelial cells GRAM STAIN RESULT (BEAKER) (test oaks=06562) 1+ gram negative rods GRAM STAIN RESULT (BEAKER) (test zmyd=461096) 2+ gram positive cocci in chains and pairs GRAM STAIN RESULT (BEAKER) (test okdw=604908) <1+ yeast POCT-GLUCOSE [id number] 10:09:00* Test Item Value Reference Range Comments POC-GLUCOSE METER (BEAKER) (test iaoo=9849) 165 mg/dL 70-110 TESTED AT [address] [address] POCT-GLUCOSE [id number] 07:28:00* Test Item Value Reference Range Comments POC-GLUCOSE METER (BEAKER) (test ntnb=0736) 163 mg/dL 70-110 TESTED AT [address] [address] [id number] 05:15:00* Test Item Value Reference Range Comments MAGNESIUM (BEAKER) (test eypw=526) 1.7 mg/dL 1.6-2.6 BASIC METABOLIC [id number] 05:15:00* Test Item Value Reference Range Comments SODIUM (BEAKER) (test hjii=105) 135 meq/L 136-145 POTASSIUM (BEAKER) (test jreo=168) 3.7 meq/L 3.5-5.1 CHLORIDE (BEAKER) (test mhmn=281) 99 meq/L 98-107 CO2 (BEAKER) (test ltjg=304) 28 meq/L 22-29 BLOOD UREA NITROGEN (BEAKER) (test feuq=187) 15 mg/dL 7-21 CREATININE (BEAKER) (test azsl=853) 0.89 mg/dL 0.57-1.25 GLUCOSE RANDOM (BEAKER) (test fnot=277) 151 mg/dL 70-105 CALCIUM (BEAKER) (test jmqb=789) 9.5 mg/dL 8.4-10.2 EGFR (BEAKER) (test efye=8043) 74 mL/min/1.73 sq m ESTIMATED GFR IS NOT ACCURATE CREATININE CLEARANCE IN PREDICTING GLOMERULAR FILTRATION RATE. ESTIMATED GFR IS NOT APPLICABLE FOR DIALYSIS PATIENTS. POCT-GLUCOSE [id number] 21:25:00* Test Item Value Reference Range Comments POC-GLUCOSE METER (BEAKER) (test wmlg=6760) 191 mg/dL 70-110 TESTED AT [address] [address] POCT-GLUCOSE [id number] 17:20:00* Test Item Value Reference Range Comments POC-GLUCOSE METER (BEAKER) (test ersz=9615) 173 mg/dL 70-110 TESTED AT [facility] [address] [facility] [address] POCT-GLUCOSE [id number] 12:18:00* Test Item Value Reference Range Comments POC-GLUCOSE METER (BEAKER) (test drkr=6833) 175 mg/dL 70-110 TESTED AT [place] [id number] [facility] [address] POCT-GLUCOSE [id number] 08:06:00* Test Item Value Reference Range Comments POC-GLUCOSE METER (BEAKER) (test iydk=3562) 169 mg/dL 70-110 TESTED AT [place] [id number] [facility] [address] [id number] 06:28:00* Test Item Value Reference Range Comments MAGNESIUM (BEAKER) (test avac=993) 1.5 mg/dL 1.6-2.6 BASIC METABOLIC [id number] 06:28:00* Test Item Value Reference Range Comments SODIUM (BEAKER) (test znkt=034) 134 meq/L 136-145 POTASSIUM (BEAKER) (test rgqi=416) 4.0 meq/L 3.5-5.1 CHLORIDE (BEAKER) (test swwp=367) 99 meq/L 98-107 CO2 (BEAKER) (test uxpr=355) 27 meq/L 22-29 BLOOD UREA NITROGEN (BEAKER) (test iyki=200) 14 mg/dL 7-21 CREATININE (BEAKER) (test ffud=536) 0.97 mg/dL 0.57-1.25 GLUCOSE RANDOM (BEAKER) (test gjnx=790) 150 mg/dL 70-105 CALCIUM (BEAKER) (test jmqs=569) 9.2 mg/dL 8.4-10.2 EGFR (BEAKER) (test kwhx=8151) 67 mL/min/1.73 sq m ESTIMATED GFR IS NOT ACCURATE CREATININE CLEARANCE IN PREDICTING GLOMERULAR FILTRATION RATE. ESTIMATED GFR IS NOT APPLICABLE FOR DIALYSIS PATIENTS. POCT-GLUCOSE [id number] 22:53:00* Test Item Value Reference Range Comments POC-GLUCOSE METER (BEAKER) (test xwjf=4613) 142 mg/dL 70-110 TESTED AT [place] [id number] [facility] [address] POCT-GLUCOSE [id number] 16:58:00* Test Item Value Reference Range Comments POC-GLUCOSE METER (BEAKER) (test hshb=4279) 147 mg/dL 70-110 TESTED AT [facility] [address] [facility] [address] POCT-GLUCOSE [id number] 11:37:00* Test Item Value Reference Range Comments POC-GLUCOSE METER (BEAKER) (test ycjp=4547) 166 mg/dL 70-110 TESTED AT [facility] [address] [facility] [address] CBC W/PLT COUNT & AUTO [id number] 10:23:00* Test Item Value Reference Range Comments WHITE BLOOD CELL COUNT (BEAKER) (test lvpe=933) 7.7 K/ L 3.5-10.5 RED BLOOD CELL COUNT (BEAKER) (test jgzy=918) 4.17 M/ L 3.93-5.22 HEMOGLOBIN (BEAKER) (test jcad=003) 10.7 GM/DL 11.2-15.7 HEMATOCRIT (BEAKER) (test uzyg=028) 33.4 % 34.1-44.9 MEAN CORPUSCULAR VOLUME (BEAKER) (test enpg=184) 80.1 fL 79.4-94.8 MEAN CORPUSCULAR HEMOGLOBIN (BEAKER) (test lwcy=251) 25.7 pg 25.6-32.2 MEAN CORPUSCULAR HEMOGLOBIN CONC (BEAKER) (test oggy=788) 32.0 GM/DL 32.2-35.5 RED CELL DISTRIBUTION WIDTH (BEAKER) (test wrly=929) 13.7 % 11.7-14.4 PLATELET COUNT (BEAKER) (test weef=067) 206 K/CU MM 150-450 MEAN PLATELET VOLUME (BEAKER) (test xnzo=589) 12.3 fL 9.4-12.3 NUCLEATED RED BLOOD CELLS (BEAKER) (test pmky=581) 0 /100 WBC 0-0 (CELLAVISION MANUAL DIFF)2019-01-10 10:23:00* Test Item Value Reference Range Comments NEUTROPHILS - REL (CELLAVISION)(BEAKER) (test vrwb=8703) 74 % LYMPHOCYTES - REL (CELLAVISION)(BEAKER) (test yyil=9310) 15 % MONOCYTES - REL (CELLAVISION)(BEAKER) (test olzi=7238) 5 % EOSINOPHILS - REL (CELLAVISION)(BEAKER) (test wult=2904) 5 % ATYPICAL LYMPHOCYTES - REL (CELLAVISION)(BEAKER) (test nqks=9092) 1 % 0-0 NEUTROPHILS - ABS (CELLAVISION)(BEAKER) (test rdmc=8747) 5.70 K/ul 1.56-6.13 LYMPHOCYTES - ABS (CELLAVISION)(BEAKER) (test tbqg=7756) 1.16 K/ul 1.18-3.74 MONOCYTES - ABS (CELLAVISION)(BEAKER) (test filv=7452) 0.39 K/uL 0.24-0.36 EOSINOPHILS - ABS (CELLAVISION)(BEAKER) (test rlro=2267) 0.39 K/uL 0.04-0.36 ATYPICAL LYMPHOCYTES - ABS (CELLAVISION)(BEAKER) (test xhjk=5629) 0.08 K/uL 0.00-0.00 TOTAL COUNTED (BEAKER) (test essr=4747) 100 WBC MORPHOLOGY (BEAKER) (test dzgo=994) Normal PLT MORPHOLOGY (BEAKER) (test ueqx=045) Normal POIKILOCYTES (BEAKER) (test yaak=045) 1+ few ARTIFACT (CELLAVISION)(BEAKER) (test pzrj=6949) Present PLATELET CONCENTRATION (CELLAVISION)(BEAKER) (test uzaz=8415) Adequate Received comment: User comments: Slide comments: HEMOGLOBIN [id number] 08:58:00* Test Item Value Reference Range Comments HEMOGLOBIN A1C (BEAKER) (test symd=482) 7.0 % 4.3-6.1 POCT-GLUCOSE [id number] 07:25:00* Test Item Value Reference Range Comments POC-GLUCOSE METER (BEAKER) (test aqgu=3812) 156 mg/dL 70-110 TESTED AT [facility] [address] [facility] [address] [id number] 06:02:00* Test Item Value Reference Range Comments MAGNESIUM (BEAKER) (test asay=089) 1.5 mg/dL 1.6-2.6 BASIC METABOLIC [id number] 06:02:00* Test Item Value Reference Range Comments SODIUM (BEAKER) (test ndgc=799) 133 meq/L 136-145 POTASSIUM (BEAKER) (test dyac=428) 4.0 meq/L 3.5-5.1 CHLORIDE (BEAKER) (test fetz=998) 99 meq/L 98-107 CO2 (BEAKER) (test gdkb=903) 27 meq/L 22-29 BLOOD UREA NITROGEN (BEAKER) (test nhbo=663) 14 mg/dL 7-21 CREATININE (BEAKER) (test vwye=200) 0.94 mg/dL 0.57-1.25 GLUCOSE RANDOM (BEAKER) (test ddle=873) 140 mg/dL 70-105 CALCIUM (BEAKER) (test kbhh=227) 9.4 mg/dL 8.4-10.2 EGFR (BEAKER) (test emob=7866) 70 mL/min/1.73 sq m ESTIMATED GFR IS NOT ACCURATE CREATININE CLEARANCE IN PREDICTING GLOMERULAR FILTRATION RATE. ESTIMATED GFR IS NOT APPLICABLE FOR DIALYSIS PATIENTS. URINALYSIS W/ [id number] 21:54:00* Test Item Value Reference Range Comments COLOR (BEAKER) (test sinh=207) Yellow CLARITY (BEAKER) (test puhh=573) Hazy SPECIFIC GRAVITY UA (BEAKER) (test smfz=732) 1.011 1.001-1.035 PH UA (BEAKER) (test ibkn=504) 5.0 5.0-8.0 PROTEIN UA (BEAKER) (test nmas=284) 20 mg/dL Negative GLUCOSE UA (BEAKER) (test sitv=863) Negative Negative KETONES UA (BEAKER) (test fqxt=172) Negative Negative BILIRUBIN UA (BEAKER) (test uqfa=398) Negative Negative BLOOD UA (BEAKER) (test houl=578) Small Negative NITRITE UA (BEAKER) (test qlkl=561) Negative Negative LEUKOCYTE ESTERASE UA (BEAKER) (test jqon=898) Large Negative UROBILINOGEN UA (BEAKER) (test yfxa=638) 0.2 mg/dL 0.2-1.0 RBC UA (BEAKER) (test pyxt=665) 21 /HPF WBC UA (BEAKER) (test kowk=740) 13 /HPF BACTERIA (BEAKER) (test jyvs=530) Moderate MUCUS (BEAKER) (test hqps=7222) Occasional SQUAMOUS EPITHELIAL (BEAKER) (test kbha=784) 7 /HPF HYALINE CASTS (BEAKER) (test kbdx=879) 16 /LPF CASTS (BEAKER) (test kbim=0857) 13 /LPF CRYSTALS, URINE (BEAKER) (test xuno=6678) Occasional YEAST (BEAKER) (test umsj=6477) Occasional SOURCE(BEAKER) (test dqfe=0193) POCT-GLUCOSE [id number] 21:07:00* Test Item Value Reference Range Comments POC-GLUCOSE METER (BEAKER) (test eebg=5718) 174 mg/dL 70-110 TESTED AT [address] [address] T4, [id number] 20:52:00* Test Item Value Reference Range Comments FREE T4 (BEAKER) (test gmak=385) 1.16 ng/dL 0.70-1.48 TSH/FREE T4 IF [id number] 20:10:00* Test Item Value Reference Range Comments THYROID STIMULATING HORMONE (BEAKER) (test tgeg=496) 0.29 uIU/mL 0.35-4.94 DIGOXIN [id number] 20:10:00* Test Item Value Reference Range Comments DIGOXIN LEVEL (BEAKER) (test kbmx=541) < ng/mL 0.8-2.0 POCT-GLUCOSE [id number] 19:03:00* Test Item Value Reference Range Comments POC-GLUCOSE METER (BEAKER) (test kwag=4264) 202 mg/dL 70-110 TESTED AT [address] [address] POCT-LACTIC ACID, [id number] 15:08:00* Test Item Value Reference Range Comments POC-LACTIC ACID, VENOUS (BEAKER) (test wnet=1277) 0.9 mmol/L 0.9-1.7 TESTED AT [address] [address] B-TYPE NATRIURETIC FACTOR (BNP)2019-01-09 14:11:00* Test Item Value Reference Range Comments B-TYPE NATRIURETIC PEPTIDE (BEAKER) (test bmmy=102) 379 pg/mL 0-100 TROPONIN [id number] 14:11:00* Test Item Value Reference Range Comments TROPONIN I (BEAKER) (test mxki=722) < ng/mL 0.00-0.03 Troponin I (TnI) levels must be interpreted in the context of the presenting sym ptoms and the clinical findings. Elevated TnI levels indicate myocardial damage, but are not specific for ischemic heart disease. Elevated TnI levels are seen in patients with other cardiac conditions (including myocarditis and congestive h eart failure), and slight TnI elevations occur in patients with other conditions , including sepsis, renal failure, acidosis, acute neurological disease, and per sistent tachyarrhythmia.[id number] 14:03:00* Test Item Value Reference Range Comments MAGNESIUM (BEAKER) (test meap=337) 1.3 mg/dL 1.6-2.6 BASIC METABOLIC [id number] 14:03:00* Test Item Value Reference Range Comments SODIUM (BEAKER) (test vmuu=807) 133 meq/L 136-145 POTASSIUM (BEAKER) (test sypf=490) 4.7 meq/L 3.5-5.1 CHLORIDE (BEAKER) (test pmpq=092) 99 meq/L 98-107 CO2 (BEAKER) (test flul=789) 26 meq/L 22-29 BLOOD UREA NITROGEN (BEAKER) (test kggg=396) 15 mg/dL 7-21 CREATININE (BEAKER) (test eikn=694) 1.33 mg/dL 0.57-1.25 GLUCOSE RANDOM (BEAKER) (test erta=708) 238 mg/dL 70-105 CALCIUM (BEAKER) (test gfen=828) 9.6 mg/dL 8.4-10.2 EGFR (BEAKER) (test tyah=0775) 47 mL/min/1.73 sq m ESTIMATED GFR IS NOT ACCURATE CREATININE CLEARANCE IN PREDICTING GLOMERULAR FILTRATION RATE. ESTIMATED GFR IS NOT APPLICABLE FOR DIALYSIS PATIENTS. [id number] 14:03:00* Test Item Value Reference Range Comments PROTIME (BEAKER) (test tfyq=109) 29.6 seconds 11.9-14.2 INR (BEAKER) (test ubmr=378) 3.0 <=5.9 PARTIAL THROMBOPLASTIN TIME (BEAKER) (test bovj=976) 51.5 seconds 22.5-36.0 Effective 12/11/2018: PT Reference Range ChangeNew: 11.9-14.2 Previous: 11.7-14. 7RECOMMENDED COUMADIN/WARFARIN INR THERAPY RANGESSTANDARD DOSE: 2.0-3.0 Include s: PROPHYLAXIS for venous thrombosis, systemic embolization; TREATMENT for venou s thrombosis and/or pulmonary embolus.HIGH RISK: Target INR is 2.5-3.5 for patie nts wiht mechanical heart valves.RAD, CHEST, 1 VIEW, NON [id number] 13:50:00 Reason for exam:->SHORTNESS OF BREATHReason for exam:->ATRIAL FIBRILLATIONReason for exam:->COUGHFINAL REPORT CLINICAL HISTORY: SHORTNESS OF BREATHATRIAL FIBRILLATIONCOUGH TECHNIQUE: 1 view of the chest. COMPARISON: 10/17/2017 IMPRESSION: As before, there is somewhat prominent retrocardiac/lower paraspinal soft tissue fullness, for which clinical correlation is advised. If clinically warranted, chest CT should be performed for further evaluation of underlying pathology. Elsewhere in the lungs, there is no evidence for focal lobar consolidation or significant pleural fluid. The heart is not enlarged. Signed: Immanuel Gerardo MDReport Verified Date/Time: 01/09/2019 13:50:50 Reading Location: [facility] C013W Consult Reading Room W/PLT COUNT & AUTO DIFFERENTIAL 2019-01-09 13:47:00* Test Item Value Reference Range Comments WHITE BLOOD CELL COUNT (BEAKER) (test xeel=935) 8.7 K/ L 3.5-10.5 RED BLOOD CELL COUNT (BEAKER) (test qima=223) 4.50 M/ L 3.93-5.22 HEMOGLOBIN (BEAKER) (test frzp=583) 11.5 GM/DL 11.2-15.7 HEMATOCRIT (BEAKER) (test xumn=264) 36.4 % 34.1-44.9 MEAN CORPUSCULAR VOLUME (BEAKER) (test wqlt=298) 80.9 fL 79.4-94.8 MEAN CORPUSCULAR HEMOGLOBIN (BEAKER) (test amvf=355) 25.6 pg 25.6-32.2 MEAN CORPUSCULAR HEMOGLOBIN CONC (BEAKER) (test vvjt=007) 31.6 GM/DL 32.2-35.5 RED CELL DISTRIBUTION WIDTH (BEAKER) (test qfgs=928) 13.8 % 11.7-14.4 PLATELET COUNT (BEAKER) (test momo=375) 244 K/CU MM 150-450 MEAN PLATELET VOLUME (BEAKER) (test jeeh=402) 12.0 fL 9.4-12.3 NUCLEATED RED BLOOD CELLS (BEAKER) (test odfb=041) 0 /100 WBC 0-0 NEUTROPHILS RELATIVE PERCENT (BEAKER) (test ivbv=677) 73 % LYMPHOCYTES RELATIVE PERCENT (BEAKER) (test refc=495) 19 % MONOCYTES RELATIVE PERCENT (BEAKER) (test wpml=084) 7 % EOSINOPHILS RELATIVE PERCENT (BEAKER) (test qfkk=337) 0 % BASOPHILS RELATIVE PERCENT (BEAKER) (test orxd=859) 0 % NEUTROPHILS ABSOLUTE COUNT (BEAKER) (test rxvc=117) 6.36 K/ L 1.56-6.13 LYMPHOCYTES ABSOLUTE COUNT (BEAKER) (test jwcw=020) 1.62 K/ L 1.18-3.74 MONOCYTES ABSOLUTE COUNT (BEAKER) (test rill=423) 0.63 K/ L 0.24-0.36 EOSINOPHILS ABSOLUTE COUNT (BEAKER) (test hack=023) 0.02 K/ L 0.04-0.36 BASOPHILS ABSOLUTE COUNT (BEAKER) (test wbpc=877) 0.03 K/ L 0.01-0.08 IMMATURE GRANULOCYTES-RELATIVE PERCENT (BEAKER) (test gjdq=6743) 1 % 0-1 BLOOD [id number] 18:00:00* Test Item Value Reference Range Comments CULTURE (BEAKER) (test xpac=8749) No growth in 5 days BLOOD [id number] 18:00:00* Test Item Value Reference Range Comments CULTURE (BEAKER) (test qsxp=2422) No growth in 5 days POCT-GLUCOSE [id number] 12:05:00* Test Item Value Reference Range Comments POC-GLUCOSE METER (BEAKER) (test zinj=9401) 134 mg/dL 70-110 TESTED AT [place] [id number] POCT-GLUCOSE [id number] 08:36:00* Test Item Value Reference Range Comments POC-GLUCOSE METER (BEAKER) (test jwzw=5904) 84 mg/dL 70-110 TESTED AT [address] [id number] 07:19:00* Test Item Value Reference Range Comments MAGNESIUM (BEAKER) (test nuqb=016) 1.6 mg/dL 1.6-2.6 BASIC METABOLIC [id number] 07:19:00* Test Item Value Reference Range Comments SODIUM (BEAKER) (test mbpt=938) 143 meq/L 136-145 POTASSIUM (BEAKER) (test bqgk=138) 3.6 meq/L 3.5-5.1 CHLORIDE (BEAKER) (test lgyy=411) 108 meq/L 98-107 CO2 (BEAKER) (test hddi=287) 28 meq/L 22-29 BLOOD UREA NITROGEN (BEAKER) (test iepp=988) 22 mg/dL 7-21 CREATININE (BEAKER) (test lofg=315) 1.07 mg/dL 0.57-1.25 GLUCOSE RANDOM (BEAKER) (test wxum=258) 100 mg/dL 70-105 CALCIUM (BEAKER) (test dzcu=728) 8.4 mg/dL 8.4-10.2 EGFR (BEAKER) (test nfea=6847) 60 mL/min/1.73 sq m ESTIMATED GFR IS NOT ACCURATE CREATININE CLEARANCE IN PREDICTING GLOMERULAR FILTRATION RATE. ESTIMATED GFR IS NOT APPLICABLE FOR DIALYSIS PATIENTS. CBC W/PLT COUNT & AUTO [id number] 07:11:00* Test Item Value Reference Range Comments WHITE BLOOD CELL COUNT (BEAKER) (test pgrz=140) 3.6 K/ L 3.5-10.5 RED BLOOD CELL COUNT (BEAKER) (test pxsi=619) 3.23 M/ L 3.93-5.22 HEMOGLOBIN (BEAKER) (test egdh=764) 7.8 GM/DL 11.2-15.7 HEMATOCRIT (BEAKER) (test kszw=950) 24.0 % 34.1-44.9 MEAN CORPUSCULAR VOLUME (BEAKER) (test xeyl=231) 74.3 fL 79.4-94.8 MEAN CORPUSCULAR HEMOGLOBIN (BEAKER) (test ahjt=362) 24.1 pg 25.6-32.2 MEAN CORPUSCULAR HEMOGLOBIN CONC (BEAKER) (test ewra=932) 32.5 GM/DL 32.2-35.5 RED CELL DISTRIBUTION WIDTH (BEAKER) (test sfyj=700) 20.8 % 11.7-14.4 PLATELET COUNT (BEAKER) (test qoav=655) 43 K/CU MM 150-450 MEAN PLATELET VOLUME (BEAKER) (test ongz=956) fL 9.4-12.3 Unable to report due to abnormal Platelet population distribution. NUCLEATED RED BLOOD CELLS (BEAKER) (test cwfy=459) 0 /100 WBC 0-0 NEUTROPHILS RELATIVE PERCENT (BEAKER) (test lqfg=499) 67 % LYMPHOCYTES RELATIVE PERCENT (BEAKER) (test blik=851) 22 % MONOCYTES RELATIVE PERCENT (BEAKER) (test qyxz=737) 9 % EOSINOPHILS RELATIVE PERCENT (BEAKER) (test pzmw=685) 1 % BASOPHILS RELATIVE PERCENT (BEAKER) (test gkiy=835) 0 % NEUTROPHILS ABSOLUTE COUNT (BEAKER) (test ekmz=775) 2.41 K/ L 1.56-6.13 LYMPHOCYTES ABSOLUTE COUNT (BEAKER) (test anas=813) 0.77 K/ L 1.18-3.74 MONOCYTES ABSOLUTE COUNT (BEAKER) (test ajtu=200) 0.32 K/ L 0.24-0.36 EOSINOPHILS ABSOLUTE COUNT (BEAKER) (test icem=920) 0.04 K/ L 0.04-0.36 BASOPHILS ABSOLUTE COUNT (BEAKER) (test frov=705) 0.01 K/ L 0.01-0.08 IMMATURE GRANULOCYTES-RELATIVE PERCENT (BEAKER) (test okkr=9127) 1 % 0-1 [id number] 06:27:00* Test Item Value Reference Range Comments PARTIAL THROMBOPLASTIN TIME (BEAKER) (test srup=500) 25.3 seconds 22.5-36.0 [id number] 06:27:00* Test Item Value Reference Range Comments FIBRINOGEN LEVEL (BEAKER) (test aehd=798) 241 mg/dl 225-434 PROTHROMBIN [id number] 06:26:00* Test Item Value Reference Range Comments PROTIME (BEAKER) (test aaas=468) 15.5 seconds 11.7-14.7 INR (BEAKER) (test wpif=098) 1.2 <=5.9 RECOMMENDED COUMADIN/WARFARIN INR THERAPY RANGESSTANDARD DOSE: 2.0 - 3.0 Inclu abril: PROPHYLAXIS for venous thrombosis, systemic embolization; TREATMENT for kalen ous thrombosis and/or pulmonary embolus.HIGH RISK: Target INR is 2.5-3.5 for pat ients with mechanical heart valves.POCT-GLUCOSE [id number] 21:50:00* Test Item Value Reference Range Comments POC-GLUCOSE METER (BEAKER) (test gawp=2661) 247 mg/dL 70-110 [address]ED AT [address] [address] POCT-GLUCOSE [id number] 17:48:00* Test Item Value Reference Range Comments POC-GLUCOSE METER (BEAKER) (test bdqo=8622) 317 mg/dL 70-110 TESTED AT [address] [address] POCT-GLUCOSE [id number] 11:41:00* Test Item Value Reference Range Comments POC-GLUCOSE METER (BEAKER) (test ngur=3299) 173 mg/dL 70-110 TESTED AT [address] [address] POCT-GLUCOSE [id number] 07:51:00* Test Item Value Reference Range Comments POC-GLUCOSE METER (BEAKER) (test wknu=1384) 153 mg/dL 70-110 TESTED AT [address] [address] [id number] 06:41:00* Test Item Value Reference Range Comments MAGNESIUM (BEAKER) (test aphi=143) 1.8 mg/dL 1.6-2.6 BASIC METABOLIC [id number] 06:41:00* Test Item Value Reference Range Comments SODIUM (BEAKER) (test xufu=760) 142 meq/L 136-145 POTASSIUM (BEAKER) (test rtja=553) 3.9 meq/L 3.5-5.1 CHLORIDE (BEAKER) (test raus=045) 108 meq/L 98-107 CO2 (BEAKER) (test htgh=158) 28 meq/L 22-29 BLOOD UREA NITROGEN (BEAKER) (test neob=354) 22 mg/dL 7-21 CREATININE (BEAKER) (test blqj=703) 1.11 mg/dL 0.57-1.25 GLUCOSE RANDOM (BEAKER) (test yium=953) 213 mg/dL 70-105 CALCIUM (BEAKER) (test esvs=064) 8.6 mg/dL 8.4-10.2 EGFR (BEAKER) (test kjfw=9126) 58 mL/min/1.73 sq m ESTIMATED GFR IS NOT ACCURATE CREATININE CLEARANCE IN PREDICTING GLOMERULAR FILTRATION RATE. ESTIMATED GFR IS NOT APPLICABLE FOR DIALYSIS PATIENTS. CBC W/PLT COUNT & AUTO [id number] 05:55:00* Test Item Value Reference Range Comments WHITE BLOOD CELL COUNT (BEAKER) (test bbjf=961) 3.3 K/ L 3.5-10.5 RED BLOOD CELL COUNT (BEAKER) (test xinp=958) 3.28 M/ L 3.93-5.22 HEMOGLOBIN (BEAKER) (test asgz=101) 7.9 GM/DL 11.2-15.7 HEMATOCRIT (BEAKER) (test tunx=133) 24.9 % 34.1-44.9 MEAN CORPUSCULAR VOLUME (BEAKER) (test flky=589) 75.9 fL 79.4-94.8 MEAN CORPUSCULAR HEMOGLOBIN (BEAKER) (test ecgz=507) 24.1 pg 25.6-32.2 MEAN CORPUSCULAR HEMOGLOBIN CONC (BEAKER) (test fxdi=182) 31.7 GM/DL 32.2-35.5 RED CELL DISTRIBUTION WIDTH (BEAKER) (test hule=623) 20.5 % 11.7-14.4 PLATELET COUNT (BEAKER) (test ubes=754) 35 K/CU MM 150-450 MEAN PLATELET VOLUME (BEAKER) (test xvyz=097) fL 9.4-12.3 Unable to report due to abnormal Platelet population distribution. NUCLEATED RED BLOOD CELLS (BEAKER) (test busk=339) 0 /100 WBC 0-0 NEUTROPHILS RELATIVE PERCENT (BEAKER) (test kihq=656) 57 % LYMPHOCYTES RELATIVE PERCENT (BEAKER) (test oukg=633) 32 % MONOCYTES RELATIVE PERCENT (BEAKER) (test rngc=171) 10 % EOSINOPHILS RELATIVE PERCENT (BEAKER) (test puod=057) 0 % BASOPHILS RELATIVE PERCENT (BEAKER) (test qhuv=135) 1 % NEUTROPHILS ABSOLUTE COUNT (BEAKER) (test kxhj=268) 1.87 K/ L 1.56-6.13 LYMPHOCYTES ABSOLUTE COUNT (BEAKER) (test vowh=920) 1.04 K/ L 1.18-3.74 MONOCYTES ABSOLUTE COUNT (BEAKER) (test gqmz=989) 0.34 K/ L 0.24-0.36 EOSINOPHILS ABSOLUTE COUNT (BEAKER) (test zmus=309) 0.00 K/ L 0.04-0.36 BASOPHILS ABSOLUTE COUNT (BEAKER) (test xpfh=936) 0.02 K/ L 0.01-0.08 IMMATURE GRANULOCYTES-RELATIVE PERCENT (BEAKER) (test nyfj=1414) 0 % 0-1 [id number] 05:18:00* Test Item Value Reference Range Comments PARTIAL THROMBOPLASTIN TIME (BEAKER) (test ewna=864) 26.0 seconds 22.5-36.0 PROTHROMBIN [id number] 05:17:00* Test Item Value Reference Range Comments PROTIME (BEAKER) (test ldmr=170) 15.7 seconds 11.7-14.7 INR (BEAKER) (test wfjt=071) 1.3 <=5.9 RECOMMENDED COUMADIN/WARFARIN INR THERAPY RANGESSTANDARD DOSE: 2.0 - 3.0 Inclu abril: PROPHYLAXIS for venous thrombosis, systemic embolization; TREATMENT for kalen ous thrombosis and/or pulmonary embolus.HIGH RISK: Target INR is 2.5-3.5 for pat ients with mechanical heart valves.POCT-GLUCOSE [id number] 21:45:00* Test Item Value Reference Range Comments POC-GLUCOSE METER (BEAKER) (test mdve=8585) 313 mg/dL 70-110 Notified ASHANTI DUMONT/TESTED AT [place] [id number] POCT-GLUCOSE [id number] 17:24:00* Test Item Value Reference Range Comments POC-GLUCOSE METER (BEAKER) (test nyrt=3974) 188 mg/dL 70-110 TESTED AT [address] [address] POCT-GLUCOSE [id number] 11:20:00* Test Item Value Reference Range Comments POC-GLUCOSE METER (BEAKER) (test bqpw=8513) 115 mg/dL 70-110 TESTED AT [address] [address] POCT-GLUCOSE [id number] 08:15:00* Test Item Value Reference Range Comments POC-GLUCOSE METER (BEAKER) (test ohbj=9860) 88 mg/dL 70-110 TESTED AT [address] [address] (MANUAL DIFFERENTIAL)2017-10-20 02:07:00* Test Item Value Reference Range Comments NEUTROPHILS - REL (DIFF) (BEAKER) (test tmwg=9251) 68 % LYMPHOCYTES - REL (DIFF) (BEAKER) (test tohr=1153) 27 % MONOCYTES - REL (DIFF) (BEAKER) (test cbnc=7131) 4 % EOSINOPHILS - REL (DIFF) (BEAKER) (test nztd=4051) 0 % BASOPHILS - REL (DIFF) (BEAKER) (test gqqx=2354) 0 % ATYPICAL LYMPHOCYTE - REL (DIFF) (BEAKER) (test uvlg=034) 1 % 0-0 NEUTROPHILS - ABS (DIFF) (BEAKER) (test vbxv=6120) 2.58 K/ L 1.80-8.00 LYMPHOCYTES - ABS (DIFF) (BEAKER) (test bpwz=0641) 1.03 K/ L 1.48-4.50 MONOCYTES - ABS (DIFF) (BEAKER) (test jhgo=2109) 0.15 K/ L 0.00-1.30 EOSINOPHILS - ABS (DIFF) (BEAKER) (test toju=1233) 0.00 K/ L 0.00-0.50 BASOPHILS - ABS (DIFF) (BEAKER) (test tqfj=9884) 0.00 K/ L 0.00-0.20 ATYPICAL LYMPHOCYTES - ABS (DIFF) (BEAKER) (test thed=033) 0.04 K/ L 0.00-0.00 TOTAL COUNTED (BEAKER) (test bhbb=3563) 100 ATYPICAL LYMPHS(BEAKER) (test jece=2393) Present SMUDGE CELLS (BEAKER) (test uzhc=2965) Present GIANT PLATELETS (BEAKER) (test stwq=789) Present ANISOCYTOSIS (BEAKER) (test axsq=227) 1+ few ELLIPTOCYTES (BEAKER) (test qxxm=266) 1+ few OVALOCYTES (BEAKER) (test dgse=487) 1+ few POIKILOCYTES (BEAKER) (test mpnq=264) 2+ moderate STOMATOCYTES (BEAKER) (test iebx=679) 1+ few CBC W/PLT COUNT & AUTO [id number] 02:05:00* Test Item Value Reference Range Comments WHITE BLOOD CELL COUNT (BEAKER) (test stdi=028) 3.8 K/ L 3.5-10.5 RED BLOOD CELL COUNT (BEAKER) (test faxm=401) 3.06 M/ L 3.93-5.22 HEMOGLOBIN (BEAKER) (test xass=971) 7.4 GM/DL 11.2-15.7 HEMATOCRIT (BEAKER) (test ronk=932) 23.0 % 34.1-44.9 MEAN CORPUSCULAR VOLUME (BEAKER) (test wyuh=174) 75.2 fL 79.4-94.8 MEAN CORPUSCULAR HEMOGLOBIN (BEAKER) (test uccz=097) 24.2 pg 25.6-32.2 MEAN CORPUSCULAR HEMOGLOBIN CONC (BEAKER) (test gflh=698) 32.2 GM/DL 32.2-35.5 RED CELL DISTRIBUTION WIDTH (BEAKER) (test rtfj=195) 20.0 % 11.7-14.4 PLATELET COUNT (BEAKER) (test mtzf=827) 40 K/CU MM 150-450 MEAN PLATELET VOLUME (BEAKER) (test yvtq=765) fL 9.4-12.3 Unable to report due to abnormal Platelet population distribution. NUCLEATED RED BLOOD CELLS (BEAKER) (test dnxi=072) 0 /100 WBC 0-0 IMMATURE GRANULOCYTES-RELATIVE PERCENT (BEAKER) (test czfs=5701) 1 % 0-1 [id number] 02:00:00* Test Item Value Reference Range Comments MAGNESIUM (BEAKER) (test kmnh=274) 1.6 mg/dL 1.6-2.6 BASIC METABOLIC [id number] 02:00:00* Test Item Value Reference Range Comments SODIUM (BEAKER) (test jebz=069) 140 meq/L 136-145 POTASSIUM (BEAKER) (test ksth=318) 3.6 meq/L 3.5-5.1 CHLORIDE (BEAKER) (test pvus=775) 105 meq/L 98-107 CO2 (BEAKER) (test imwi=115) 27 meq/L 22-29 BLOOD UREA NITROGEN (BEAKER) (test gkmf=115) 24 mg/dL 7-21 CREATININE (BEAKER) (test tyhx=579) 1.12 mg/dL 0.57-1.25 GLUCOSE RANDOM (BEAKER) (test dyyc=173) 209 mg/dL 70-105 CALCIUM (BEAKER) (test oosc=331) 8.9 mg/dL 8.4-10.2 EGFR (BEAKER) (test gsww=9633) 57 mL/min/1.73 sq m ESTIMATED GFR IS NOT ACCURATE CREATININE CLEARANCE IN PREDICTING GLOMERULAR FILTRATION RATE. ESTIMATED GFR IS NOT APPLICABLE FOR DIALYSIS PATIENTS. [id number] 01:47:00* Test Item Value Reference Range Comments D-DIMER QUANTITATIVE (BEAKER) (test odqd=983) 1.29 MG/L FEU <0.50 Intended Use: The D-Dimer Assay can be used to aid in the diagnosis of Deep Vein Thrombosis (DVT) and Pulmonary Embolism Disease (PED).In patients with low pre- test probability, various studies concerning STA Liatest D-dimer test have repor jim that with a cutoff value of 0.50 MG/L FEU, the Negative Predictive Value (MINE ENGINEERING MANAGER V) regarding the exclusion of thrombosis is within 95-100% range.FIBRINOGEN 2017-10-20 01:43:00* Test Item Value Reference Range Comments FIBRINOGEN LEVEL (BEAKER) (test nins=245) 306 mg/dl 225-434 POCT-GLUCOSE [id number] 21:14:00* Test Item Value Reference Range Comments POC-GLUCOSE METER (BEAKER) (test vxow=5802) 277 mg/dL 70-110 TESTED AT [facility] [address] [facility] [address] POCT-GLUCOSE [id number] 16:22:00* Test Item Value Reference Range Comments POC-GLUCOSE METER (BEAKER) (test dfpg=5353) 339 mg/dL 70-110 TESTED AT [place] [id number] [facility] [address] URINE [id number] 13:39:00* Test Item Value Reference Range Comments CULTURE (BEAKER) (test hsjq=8691) See comment <10,000 col/mL Gram negative domonique of 2 different zpacj49-46,000 col/mL skin fe POCT-GLUCOSE [id number] 12:22:00* Test Item Value Reference Range Comments POC-GLUCOSE METER (BEAKER) (test mszr=3545) 167 mg/dL 70-110 TESTED AT [place] [id number] [facility] [address] [id number] 11:18:00* Test Item Value Reference Range Comments FIBRINOGEN LEVEL (BEAKER) (test yhjw=983) 340 mg/dl 225-434 [id number] 11:17:00* Test Item Value Reference Range Comments PROTIME (BEAKER) (test ajkc=710) 16.4 seconds 11.7-14.7 INR (BEAKER) (test ikjl=706) 1.3 <=5.9 PARTIAL THROMBOPLASTIN TIME (BEAKER) (test ejii=372) 25.9 seconds 22.5-36.0 RECOMMENDED COUMADIN/WARFARIN INR THERAPY RANGESSTANDARD DOSE: 2.0 - 3.0 Inclu abril: PROPHYLAXIS for venous thrombosis, systemic embolization; TREATMENT for kalen ous thrombosis and/or pulmonary embolus.HIGH RISK: Target INR is 2.5-3.5 for pat ients with mechanical heart valves.[id number] 11:16:00* Test Item Value Reference Range Comments D-DIMER QUANTITATIVE (BEAKER) (test wtxh=225) 0.94 MG/L FEU <0.50 Intended Use: The D-Dimer Assay can be used to aid in the diagnosis of Deep Vein Thrombosis (DVT) and Pulmonary Embolism Disease (PED).In patients with low pre- test probability, various studies concerning STA Liatest D-dimer test have repor jim that with a cutoff value of 0.50 MG/L FEU, the Negative Predictive Value (MINE ENGINEERING MANAGER V) regarding the exclusion of thrombosis is within 95-100% range.VITAMIN B12 AND [id number] 09:57:00* Test Item Value Reference Range Comments VITAMIN B12 (BEAKER) (test edki=348) 439 pg/mL 213-816 FOLATE (BEAKER) (test woqc=156) 13.0 ng/mL >=7.0 POCT-GLUCOSE [id number] 08:15:00* Test Item Value Reference Range Comments POC-GLUCOSE METER (BEAKER) (test jvdt=5577) 257 mg/dL 70-110 TESTED AT [address] [address] CBC W/PLT COUNT & AUTO [id number] 07:14:00* Test Item Value Reference Range Comments WHITE BLOOD CELL COUNT (BEAKER) (test lqrd=241) 3.8 K/ L 3.5-10.5 RED BLOOD CELL COUNT (BEAKER) (test gcgz=946) 3.15 M/ L 3.93-5.22 HEMOGLOBIN (BEAKER) (test gftx=480) 7.4 GM/DL 11.2-15.7 HEMATOCRIT (BEAKER) (test wxkh=679) 23.8 % 34.1-44.9 MEAN CORPUSCULAR VOLUME (BEAKER) (test dvdx=515) 75.6 fL 79.4-94.8 MEAN CORPUSCULAR HEMOGLOBIN (BEAKER) (test exhp=194) 23.5 pg 25.6-32.2 MEAN CORPUSCULAR HEMOGLOBIN CONC (BEAKER) (test zpmd=981) 31.1 GM/DL 32.2-35.5 RED CELL DISTRIBUTION WIDTH (BEAKER) (test iiyg=828) 19.8 % 11.7-14.4 PLATELET COUNT (BEAKER) (test lmvi=432) 9 K/CU MM 150-450 MEAN PLATELET VOLUME (BEAKER) (test joco=976) fL 9.4-12.3 Unable to report due to abnormal Platelet population distribution. NUCLEATED RED BLOOD CELLS (BEAKER) (test pnry=365) 0 /100 WBC 0-0 NEUTROPHILS RELATIVE PERCENT (BEAKER) (test dmri=567) 50 % LYMPHOCYTES RELATIVE PERCENT (BEAKER) (test gwxa=025) 37 % MONOCYTES RELATIVE PERCENT (BEAKER) (test kuqx=054) 10 % EOSINOPHILS RELATIVE PERCENT (BEAKER) (test jvst=912) 1 % BASOPHILS RELATIVE PERCENT (BEAKER) (test etpc=776) 1 % NEUTROPHILS ABSOLUTE COUNT (BEAKER) (test qivf=932) 1.90 K/ L 1.56-6.13 LYMPHOCYTES ABSOLUTE COUNT (BEAKER) (test jxzn=711) 1.41 K/ L 1.18-3.74 MONOCYTES ABSOLUTE COUNT (BEAKER) (test rjsy=320) 0.39 K/ L 0.24-0.36 EOSINOPHILS ABSOLUTE COUNT (BEAKER) (test sruz=450) 0.02 K/ L 0.04-0.36 BASOPHILS ABSOLUTE COUNT (BEAKER) (test ylub=067) 0.02 K/ L 0.01-0.08 IMMATURE GRANULOCYTES-RELATIVE PERCENT (BEAKER) (test wtux=5596) 1 % 0-1 [id number] 05:28:00* Test Item Value Reference Range Comments MAGNESIUM (BEAKER) (test gdun=549) 1.7 mg/dL 1.6-2.6 BASIC METABOLIC [id number] 05:28:00* Test Item Value Reference Range Comments SODIUM (BEAKER) (test tkek=015) 141 meq/L 136-145 POTASSIUM (BEAKER) (test pyyc=282) 3.7 meq/L 3.5-5.1 CHLORIDE (BEAKER) (test cfrq=575) 106 meq/L 98-107 CO2 (BEAKER) (test kthg=301) 28 meq/L 22-29 BLOOD UREA NITROGEN (BEAKER) (test yoby=890) 25 mg/dL 7-21 CREATININE (BEAKER) (test jcam=132) 1.17 mg/dL 0.57-1.25 GLUCOSE RANDOM (BEAKER) (test vrzt=161) 215 mg/dL 70-105 CALCIUM (BEAKER) (test crtv=707) 9.2 mg/dL 8.4-10.2 EGFR (BEAKER) (test jiul=7615) 54 mL/min/1.73 sq m ESTIMATED GFR IS NOT ACCURATE CREATININE CLEARANCE IN PREDICTING GLOMERULAR FILTRATION RATE. ESTIMATED GFR IS NOT APPLICABLE FOR DIALYSIS PATIENTS. POCT-GLUCOSE [id number] 22:25:00* Test Item Value Reference Range Comments POC-GLUCOSE METER (BEAKER) (test guqi=0914) 324 mg/dL 70-110 Notified ASHANTI DUMONT/TESTED AT [place] [address] POCT-GLUCOSE [id number] 17:34:00* Test Item Value Reference Range Comments POC-GLUCOSE METER (BEAKER) (test yzqh=5334) 302 mg/dL 70-110 Notified ASHANTI DUMONT/TESTED AT [place] [address] PERIPHERAL BLOOD SMEAR - PATH REVIEW LAB [id number] 16:42:00* Test Item Value Reference Range Comments PERIPHERAL SMR REVIEW (BEAKER) (test kykl=4310) Microcytic anemia; Leukopenia; Marked thrombocytopenia; mild increase in schistocytes; no blasts detected; Findings may be due to underlying condition; clinical correlation recommended. [id number] (BEAKER) (test nnhs=0420) Edward Carrion MD (electronic signature) POCT-GLUCOSE [id number] 12:19:00* Test Item Value Reference Range Comments POC-GLUCOSE METER (BEAKER) (test cmtc=6820) 282 mg/dL 70-110 TESTED AT [facility] [address] [facility] [address] [id number] 11:39:00* Test Item Value Reference Range Comments D-DIMER QUANTITATIVE (BEAKER) (test xcrk=854) 0.96 MG/L FEU <0.50 Intended Use: The D-Dimer Assay can be used to aid in the diagnosis of Deep Vein Thrombosis (DVT) and Pulmonary Embolism Disease (PED).In patients with low pre- test probability, various studies concerning STA Liatest D-dimer test have repor jim that with a cutoff value of 0.50 MG/L FEU, the Negative Predictive Value (MINE ENGINEERING MANAGER V) regarding the exclusion of thrombosis is within 95-100% range.PROTHROMBIN [id number] 11:36:00* Test Item Value Reference Range Comments PROTIME (BEAKER) (test bidh=050) 18.1 seconds 11.7-14.7 INR (BEAKER) (test tgmc=135) 1.5 <=5.9 RECOMMENDED COUMADIN/WARFARIN INR THERAPY RANGESSTANDARD DOSE: 2.0 - 3.0 Inclu abril: PROPHYLAXIS for venous thrombosis, systemic embolization; TREATMENT for kalen ous thrombosis and/or pulmonary embolus.HIGH RISK: Target INR is 2.5-3.5 for pat ients with mechanical heart valves.[id number] 11:36:00* Test Item Value Reference Range Comments FIBRINOGEN LEVEL (BEAKER) (test jyth=388) 328 mg/dl 225-434 [id number] 11:36:00* Test Item Value Reference Range Comments PARTIAL THROMBOPLASTIN TIME (BEAKER) (test ffqc=565) 28.6 seconds 22.5-36.0 CBC W/PLT COUNT & AUTO [id number] 09:26:00* Test Item Value Reference Range Comments WHITE BLOOD CELL COUNT (BEAKER) (test gajl=482) 2.0 K/ L 3.5-10.5 RED BLOOD CELL COUNT (BEAKER) (test itxc=601) 3.19 M/ L 3.93-5.22 HEMOGLOBIN (BEAKER) (test kwcc=094) 7.7 GM/DL 11.2-15.7 HEMATOCRIT (BEAKER) (test jhdc=312) 24.4 % 34.1-44.9 MEAN CORPUSCULAR VOLUME (BEAKER) (test tzzi=097) 76.5 fL 79.4-94.8 MEAN CORPUSCULAR HEMOGLOBIN (BEAKER) (test qmjq=963) 24.1 pg 25.6-32.2 MEAN CORPUSCULAR HEMOGLOBIN CONC (BEAKER) (test inrz=835) 31.6 GM/DL 32.2-35.5 RED CELL DISTRIBUTION WIDTH (BEAKER) (test ccss=806) 19.7 % 11.7-14.4 PLATELET COUNT (BEAKER) (test wmyt=334) 5 K/CU MM 150-450 MEAN PLATELET VOLUME (BEAKER) (test ijxt=324) fL 9.4-12.3 Unable to report due to abnormal Platelet population distribution. NUCLEATED RED BLOOD CELLS (BEAKER) (test hnek=124) 0 /100 WBC 0-0 NEUTROPHILS RELATIVE PERCENT (BEAKER) (test iney=895) 64 % LYMPHOCYTES RELATIVE PERCENT (BEAKER) (test bfji=662) 29 % MONOCYTES RELATIVE PERCENT (BEAKER) (test vsgy=435) 4 % EOSINOPHILS RELATIVE PERCENT (BEAKER) (test obxz=646) 1 % BASOPHILS RELATIVE PERCENT (BEAKER) (test acra=525) 1 % NEUTROPHILS ABSOLUTE COUNT (BEAKER) (test ptus=078) 1.30 K/ L 1.56-6.13 LYMPHOCYTES ABSOLUTE COUNT (BEAKER) (test douk=231) 0.60 K/ L 1.18-3.74 MONOCYTES ABSOLUTE COUNT (BEAKER) (test klmu=654) 0.08 K/ L 0.24-0.36 EOSINOPHILS ABSOLUTE COUNT (BEAKER) (test shpk=496) 0.01 K/ L 0.04-0.36 BASOPHILS ABSOLUTE COUNT (BEAKER) (test grhf=485) 0.01 K/ L 0.01-0.08 IMMATURE GRANULOCYTES-RELATIVE PERCENT (BEAKER) (test vkkm=3073) 2 % 0-1 (MANUAL DIFFERENTIAL)2017-10-18 09:26:00* Test Item Value Reference Range Comments TOTAL COUNTED (BEAKER) (test qjbw=2930) WBC MORPHOLOGY (BEAKER) (test mdej=952) Normal LARGE PLT(BEAKER) (test vlpq=7243) Present SCHISTOCYTES (BEAKER) (test pjtl=258) 1+ few POLYCHROMATOPHILLIC RBCS(BEAKER) (test nrto=626) 1+ few POCT-GLUCOSE [id number] 08:12:00* Test Item Value Reference Range Comments POC-GLUCOSE METER (BEAKER) (test oyoi=0507) 263 mg/dL 70-110 TESTED AT [facility] [address] [facility] [address] [id number] 05:17:00* Test Item Value Reference Range Comments MAGNESIUM (BEAKER) (test hhus=130) 1.2 mg/dL 1.6-2.6 BASIC METABOLIC [id number] 05:17:00* Test Item Value Reference Range Comments SODIUM (BEAKER) (test vfdj=256) 139 meq/L 136-145 POTASSIUM (BEAKER) (test cqsd=451) 3.9 meq/L 3.5-5.1 CHLORIDE (BEAKER) (test fvys=983) 107 meq/L 98-107 CO2 (BEAKER) (test skjl=419) 23 meq/L 22-29 BLOOD UREA NITROGEN (BEAKER) (test yujt=934) 18 mg/dL 7-21 CREATININE (BEAKER) (test bwyk=531) 1.09 mg/dL 0.57-1.25 GLUCOSE RANDOM (BEAKER) (test syae=398) 232 mg/dL 70-105 CALCIUM (BEAKER) (test wiru=502) 9.2 mg/dL 8.4-10.2 EGFR (BEAKER) (test vdyy=7237) 59 mL/min/1.73 sq m ESTIMATED GFR IS NOT ACCURATE CREATININE CLEARANCE IN PREDICTING GLOMERULAR FILTRATION RATE. ESTIMATED GFR IS NOT APPLICABLE FOR DIALYSIS PATIENTS. POCT-GLUCOSE [id number] 22:50:00* Test Item Value Reference Range Comments POC-GLUCOSE METER (BEAKER) (test kbbj=6120) 305 mg/dL 70-110 TESTED AT [facility] [address] [facility] [address] CBC W/PLT COUNT & AUTO [id number] 20:06:00* Test Item Value Reference Range Comments WHITE BLOOD CELL COUNT (BEAKER) (test crhu=078) 3.0 K/ L 3.5-10.5 RED BLOOD CELL COUNT (BEAKER) (test pohi=286) 3.38 M/ L 3.93-5.22 HEMOGLOBIN (BEAKER) (test gscs=169) 8.0 GM/DL 11.2-15.7 HEMATOCRIT (BEAKER) (test jluz=993) 26.4 % 34.1-44.9 MEAN CORPUSCULAR VOLUME (BEAKER) (test bfbb=877) 78.1 fL 79.4-94.8 MEAN CORPUSCULAR HEMOGLOBIN (BEAKER) (test ceju=407) 23.7 pg 25.6-32.2 MEAN CORPUSCULAR HEMOGLOBIN CONC (BEAKER) (test seze=096) 30.3 GM/DL 32.2-35.5 RED CELL DISTRIBUTION WIDTH (BEAKER) (test rvla=310) 20.0 % 11.7-14.4 PLATELET COUNT (BEAKER) (test uygd=872) 14 K/CU MM 150-450 MEAN PLATELET VOLUME (BEAKER) (test ywkw=865) fL 9.4-12.3 Unable to report due to abnormal Platelet population distribution. NUCLEATED RED BLOOD CELLS (BEAKER) (test yehg=288) 0 /100 WBC 0-0 NEUTROPHILS RELATIVE PERCENT (BEAKER) (test rqug=789) 59 % LYMPHOCYTES RELATIVE PERCENT (BEAKER) (test aeha=795) 19 % MONOCYTES RELATIVE PERCENT (BEAKER) (test tnig=825) 9 % EOSINOPHILS RELATIVE PERCENT (BEAKER) (test rvha=288) 9 % BASOPHILS RELATIVE PERCENT (BEAKER) (test mvpu=644) 1 % NEUTROPHILS ABSOLUTE COUNT (BEAKER) (test wvrj=156) 1.77 K/ L 1.56-6.13 LYMPHOCYTES ABSOLUTE COUNT (BEAKER) (test jefr=739) 0.56 K/ L 1.18-3.74 MONOCYTES ABSOLUTE COUNT (BEAKER) (test orzh=981) 0.27 K/ L 0.24-0.36 EOSINOPHILS ABSOLUTE COUNT (BEAKER) (test ixfj=015) 0.27 K/ L 0.04-0.36 BASOPHILS ABSOLUTE COUNT (BEAKER) (test fepe=732) 0.04 K/ L 0.01-0.08 IMMATURE GRANULOCYTES-RELATIVE PERCENT (BEAKER) (test lxnp=4036) 3 % 0-1 POCT-GLUCOSE [id number] 17:47:00* Test Item Value Reference Range Comments POC-GLUCOSE METER (BEAKER) (test ihak=9016) 205 mg/dL 70-110 TESTED AT [facility] [address] [facility] [address] CT, BRAIN, WITHOUT [id number] 15:53:00FINAL REPORT CT head without contrast 10/17/2017 3:50 PM CLINICAL HISTORY: thrombocytopenia, received blood thinners, generalized weakness TECHNIQUE: Axial noncontrast CT images through the head were obtained. This examination was performed according to our departmental dose optimization program, which includes automated exposure control, adjustment of the mA and/or kV according to patient size, and/or use of iterated reconstruction technique. COMPARISON: None available FINDINGS: There is no hemorrhage, extra-axial collection, mass, hydrocephalus, or midline shift. There are rare chronic-appearing microvascular changes in the supratentorial white matter. There is generalized parenchymal vo lume loss. The visualized paranasal sinuses and mastoid air cells are well aera jim. The skull is intact. IMPRESSION: No intracranial hemorrhage or mass effect. If concern for acute pathology persists, further evaluation with MRI is recomme nded. Signed: Escobar Davila MDRepputnam county memorial hospital Verified Date/Time: 10/17/2017 15:53:30 Reading Location: [place] [facility] ALYSIS W/ MICROSCOPIC 2017-10-17 14:28:00* Test Item Value Reference Range Comments COLOR (BEAKER) (test bqpw=850) Light Yellow CLARITY (BEAKER) (test bphm=376) Clear SPECIFIC GRAVITY UA (BEAKER) (test lieh=682) 1.008 1.001-1.035 PH UA (BEAKER) (test lpiy=314) 5.0 5.0-8.0 PROTEIN UA (BEAKER) (test tvmg=266) 10 mg/dL Negative GLUCOSE UA (BEAKER) (test sifk=415) 70 mg/dL Negative KETONES UA (BEAKER) (test okiz=356) Negative Negative BILIRUBIN UA (BEAKER) (test nkns=576) Negative Negative BLOOD UA (BEAKER) (test jnyf=523) Small Negative NITRITE UA (BEAKER) (test tkih=304) Negative Negative LEUKOCYTE ESTERASE UA (BEAKER) (test mthu=100) Negative Negative UROBILINOGEN UA (BEAKER) (test jafw=284) 0.2 mg/dL 0.2-1.0 RBC UA (BEAKER) (test slsc=260) 5 /HPF WBC UA (BEAKER) (test fohc=269) < /HPF MUCUS (BEAKER) (test zmdt=2265) Rare SQUAMOUS EPITHELIAL (BEAKER) (test njqr=956) 1 /HPF SOURCE(BEAKER) (test dger=2940) Urine, Voided RAD, CHEST, 1 VIEW, NON [id number] 13:21:00Reason for exam:->tachypneic, eval for infection/volumeShould this be performed at the bedside?->YesFINAL REPORT INDICATION: tachypneic, eval for infection/volume COMPARISON: None. TECHNIQUE: Chest radiograph, single view, portable technique. FINDINGS / IMPRESSION: Enlarged heart shadow and pulmonary venous congestion noted. No overt pulmonary edema and no pleural effusion demonstrated. No cons olidation and no pneumothorax demonstrated. There is a questionable left low par avertebral mass, versus atypical appearance of tortuous thoracic aorta. Comparis on to prior radiograph would be helpful. In the absence of that, chest CT with i ntravenous contrast is recommended for further evaluation. Osseous structures un remarkable. Signed: Hansel Vazquez MDReport Verified Date/Time: 10/17/2017 13 :21:24 Reading Location: [facility] Mammo Reading Room CULOCYTE [id number] 13:08:00* Test Item Value Reference Range Comments RETICULOCYTE COUNT PCT (BEAKER) (test tvgs=079) 0.3 % 0.5-1.7 Please draw 30 minutes after completion of platelet transfusionPOCT-GLUCOSE [id number] 11:55:00* Test Item Value Reference Range Comments POC-GLUCOSE METER (BEAKER) (test layf=5119) 324 mg/dL 70-110 Notified ASHANTI DUMONT/TESTED AT [address] [address] CBC W/PLT COUNT & AUTO [id number] 11:16:00* Test Item Value Reference Range Comments WHITE BLOOD CELL COUNT (BEAKER) (test tszw=260) 2.3 K/ L 3.5-10.5 RED BLOOD CELL COUNT (BEAKER) (test vhxl=653) 3.33 M/ L 3.93-5.22 HEMOGLOBIN (BEAKER) (test xdyu=446) 8.0 GM/DL 11.2-15.7 HEMATOCRIT (BEAKER) (test zchs=217) 25.7 % 34.1-44.9 MEAN CORPUSCULAR VOLUME (BEAKER) (test zgbl=990) 77.2 fL 79.4-94.8 MEAN CORPUSCULAR HEMOGLOBIN (BEAKER) (test opxu=171) 24.0 pg 25.6-32.2 MEAN CORPUSCULAR HEMOGLOBIN CONC (BEAKER) (test ikbj=908) 31.1 GM/DL 32.2-35.5 RED CELL DISTRIBUTION WIDTH (BEAKER) (test erkg=602) 20.0 % 11.7-14.4 PLATELET COUNT (BEAKER) (test nxbi=776) 2 K/CU MM 150-450 MEAN PLATELET VOLUME (BEAKER) (test dtbi=497) fL 9.4-12.3 Unable to report due to abnormal Platelet population distribution. NUCLEATED RED BLOOD CELLS (BEAKER) (test vzov=504) 0 /100 WBC 0-0 IMMATURE GRANULOCYTES-RELATIVE PERCENT (BEAKER) (test urag=9239) 4 % 0-1 (MANUAL DIFFERENTIAL)2017-10-17 11:16:00* Test Item Value Reference Range Comments NEUTROPHILS - REL (DIFF) (BEAKER) (test gxab=5849) 71 % LYMPHOCYTES - REL (DIFF) (BEAKER) (test jpdc=5981) 10 % MONOCYTES - REL (DIFF) (BEAKER) (test sijx=3345) 9 % EOSINOPHILS - REL (DIFF) (BEAKER) (test tpzv=0702) 10 % BASOPHILS - REL (DIFF) (BEAKER) (test lfqy=6666) 0 % NEUTROPHILS - ABS (DIFF) (BEAKER) (test wanh=6542) 1.63 K/ L 1.80-8.00 LYMPHOCYTES - ABS (DIFF) (BEAKER) (test glvu=1503) 0.23 K/ L 1.48-4.50 MONOCYTES - ABS (DIFF) (BEAKER) (test gniv=4998) 0.21 K/ L 0.00-1.30 EOSINOPHILS - ABS (DIFF) (BEAKER) (test jjtd=7972) 0.23 K/ L 0.00-0.50 BASOPHILS - ABS (DIFF) (BEAKER) (test kleg=7592) 0.00 K/ L 0.00-0.20 TOTAL COUNTED (BEAKER) (test uqaa=9899) 100 WBC MORPHOLOGY (BEAKER) (test huus=230) Normal PLT MORPHOLOGY (BEAKER) (test pncm=346) Normal SCHISTOCYTES (BEAKER) (test lgpe=945) 1+ few OVALOCYTES (BEAKER) (test ftzu=816) 2+ moderate CBC W/PLT COUNT & AUTO [id number] 10:51:00* Test Item Value Reference Range Comments WHITE BLOOD CELL COUNT (BEAKER) (test atxd=294) 2.4 K/ L 3.5-10.5 This is a corrected result. Previous result was 2.6 K/ L on 10/17/2017 at 0426 CDT RED BLOOD CELL COUNT (BEAKER) (test cool=912) 3.34 M/ L 3.93-5.22 This is a corrected result. Previous result was 3.29 M/ L on 10/17/2017 at 0426 CDT HEMOGLOBIN (BEAKER) (test cxpu=742) 8.0 GM/DL 11.2-15.7 This is a corrected result. Previous result was 7.9 GM/DL on 10/17/2017 at 0426 CDT HEMATOCRIT (BEAKER) (test ydgq=037) 25.9 % 34.1-44.9 This is a corrected result. Previous result was 25.4 % on 10/17/2017 at 0426 CDT MEAN CORPUSCULAR VOLUME (BEAKER) (test eieo=263) 77.5 fL 79.4-94.8 This is a corrected result. Previous result was 77.2 fL on 10/17/2017 at 0426 CDT MEAN CORPUSCULAR HEMOGLOBIN (BEAKER) (test ibvk=031) 24.0 pg 25.6-32.2 MEAN CORPUSCULAR HEMOGLOBIN CONC (BEAKER) (test bjws=828) 30.9 GM/DL 32.2-35.5 This is a corrected result. Previous result was 31.1 GM/DL on 10/17/2017 at 0426 CDT RED CELL DISTRIBUTION WIDTH (BEAKER) (test aonv=865) 19.9 % 11.7-14.4 This is a corrected result. Previous result was 20.0 % on 10/17/2017 at 0426 CDT PLATELET COUNT (BEAKER) (test pdnj=798) 3 K/CU MM 150-450 This is a corrected result. Previous result was 79 K/CU MM on 10/17/2017 at 0426 CDT MEAN PLATELET VOLUME (BEAKER) (test ytod=015) fL 9.4-12.3 Unable to report due to abnormal Platelet population distribution. NUCLEATED RED BLOOD CELLS (BEAKER) (test htqu=671) 0 /100 WBC 0-0 IMMATURE GRANULOCYTES-RELATIVE PERCENT (BEAKER) (test swny=9336) 3 % 0-1 (MANUAL DIFFERENTIAL)2017-10-17 10:51:00* Test Item Value Reference Range Comments NEUTROPHILS - REL (DIFF) (BEAKER) (test teaf=6263) 70 % LYMPHOCYTES - REL (DIFF) (BEAKER) (test edsp=2290) 7 % MONOCYTES - REL (DIFF) (BEAKER) (test lfkz=9743) 9 % EOSINOPHILS - REL (DIFF) (BEAKER) (test drmu=5020) 13 % BASOPHILS - REL (DIFF) (BEAKER) (test regh=1332) 0 % BANDS - REL (DIFF) (BEAKER) (test vanv=7256) 1 % 0-10 NEUTROPHILS - ABS (DIFF) (BEAKER) (test tqsp=1161) 1.68 K/ L 1.80-8.00 LYMPHOCYTES - ABS (DIFF) (BEAKER) (test ewci=1811) 0.17 K/ L 1.48-4.50 MONOCYTES - ABS (DIFF) (BEAKER) (test wrig=6434) 0.22 K/ L 0.00-1.30 EOSINOPHILS - ABS (DIFF) (BEAKER) (test fkqr=9928) 0.31 K/ L 0.00-0.50 BASOPHILS - ABS (DIFF) (BEAKER) (test xbka=7878) 0.00 K/ L 0.00-0.20 BANDS-ABS (DIFF) (BEAKER) (test wvve=3244) 0.0 K/ L 0.0-0.8 TOTAL COUNTED (BEAKER) (test mwmy=2347) 100 BANDS + SEGMENTED NEUTROPHILS (BEAKER) (test jytq=6319) 1.70 MANUAL NRBC PER 100 CELLS (BEAKER) (test zuti=7927) 1 /100 WBC 0-0 WBC MORPHOLOGY (BEAKER) (test zzoc=132) Normal PLT MORPHOLOGY (BEAKER) (test gpmd=439) Normal SCHISTOCYTES (BEAKER) (test fxuc=039) 1+ few ELLIPTOCYTES (BEAKER) (test cjat=203) 2+ moderate PLATELET [id number] 10:20:00* Test Item Value Reference Range Comments PLATELET COUNT (BEAKER) (test phmy=565) 4 K/CU MM 150-450 Please draw 30 minutes after completion of platelet transfusionPOCT-GLUCOSE [id number] 08:08:00* Test Item Value Reference Range Comments [facility] (test hxhk=9728) 204 mg/dL 70-110 TESTED AT [address] [address] PERIPHERAL BLOOD SMEAR - HOLD [id number] 07:59:00* Test Item Value Reference Range Comments PERIPHERAL SMEAR SAVE (BEAKER) (test cxzp=5356) saved POCT-GLUCOSE [id number] 06:00:00* Test Item Value Reference Range Comments POC-GLUCOSE METER (BEAKER) (test qmfi=6113) 235 mg/dL 70-110 TESTED AT [address] [address] [id number] 05:02:00* Test Item Value Reference Range Comments FIBRINOGEN LEVEL (BEAKER) (test mibd=534) 310 mg/dl 225-434 PT/[id number] 05:02:00* Test Item Value Reference Range Comments PROTIME (BEAKER) (test uhsa=952) 23.6 seconds 11.7-14.7 INR (BEAKER) (test zltp=310) 2.1 <=5.9 PARTIAL THROMBOPLASTIN TIME (BEAKER) (test zllu=860) 32.0 seconds 22.5-36.0 RECOMMENDED COUMADIN/WARFARIN INR THERAPY RANGESSTANDARD DOSE: 2.0 - 3.0 Inclu abril: PROPHYLAXIS for venous thrombosis, systemic embolization; TREATMENT for kalen ous thrombosis and/or pulmonary embolus.HIGH RISK: Target INR is 2.5-3.5 for pat ients with mechanical heart valves.BASIC METABOLIC [id number] 04:46:00* Test Item Value Reference Range Comments SODIUM (BEAKER) (test buuy=447) 140 meq/L 136-145 POTASSIUM (BEAKER) (test zvxt=228) 4.1 meq/L 3.5-5.1 CHLORIDE (BEAKER) (test kxdm=353) 110 meq/L 98-107 CO2 (BEAKER) (test jdxa=599) 23 meq/L 22-29 BLOOD UREA NITROGEN (BEAKER) (test rrec=745) 23 mg/dL 7-21 CREATININE (BEAKER) (test cxuf=570) 1.24 mg/dL 0.57-1.25 GLUCOSE RANDOM (BEAKER) (test lndq=615) 223 mg/dL 70-105 CALCIUM (BEAKER) (test siso=723) 9.5 mg/dL 8.4-10.2 EGFR (BEAKER) (test nxks=5250) 51 mL/min/1.73 sq m ESTIMATED GFR IS NOT ACCURATE CREATININE CLEARANCE IN PREDICTING GLOMERULAR FILTRATION RATE. ESTIMATED GFR IS NOT APPLICABLE FOR DIALYSIS PATIENTS. POCT-GLUCOSE [id number] 00:34:00* Test Item Value Reference Range Comments POC-GLUCOSE METER (BEAKER) (test ixkm=4165) 269 mg/dL 70-110 TESTED AT [place] [id number] [facility] [address] POCT-GLUCOSE [id number] 22:04:00* Test Item Value Reference Range Comments POC-GLUCOSE METER (BEAKER) (test rjgu=6893) 279 mg/dL 70-110 TESTED AT [place] [id number] [facility] [address] POCT-GLUCOSE [id number] 20:30:00* Test Item Value Reference Range Comments POC-GLUCOSE METER (BEAKER) (test vjuz=0862) 246 mg/dL 70-110 TESTED AT [address] [address] BASIC METABOLIC [id number] 18:01:00* Test Item Value Reference Range Comments SODIUM (BEAKER) (test zlzk=432) 140 meq/L 136-145 POTASSIUM (BEAKER) (test ifyw=837) 3.9 meq/L 3.5-5.1 CHLORIDE (BEAKER) (test nkxd=635) 108 meq/L 98-107 CO2 (BEAKER) (test zyak=186) 27 meq/L 22-29 BLOOD UREA NITROGEN (BEAKER) (test aixm=273) 26 mg/dL 7-21 CREATININE (BEAKER) (test jhpe=954) 1.41 mg/dL 0.57-1.25 GLUCOSE RANDOM (BEAKER) (test wffq=502) 192 mg/dL 70-105 CALCIUM (BEAKER) (test bbsb=220) 9.5 mg/dL 8.4-10.2 EGFR (BEAKER) (test sule=7324) 44 mL/min/1.73 sq m ESTIMATED GFR IS NOT ACCURATE CREATININE CLEARANCE IN PREDICTING GLOMERULAR FILTRATION RATE. ESTIMATED GFR IS NOT APPLICABLE FOR DIALYSIS PATIENTS. [id number] 18:01:00* Test Item Value Reference Range Comments MAGNESIUM (BEAKER) (test qvsi=259) 1.9 mg/dL 1.6-2.6 POCT-GLUCOSE [id number] 17:14:00* Test Item Value Reference Range Comments POC-GLUCOSE METER (BEAKER) (test yukx=4264) 229 mg/dL 70-110 TESTED AT [address] [address] POCT-GLUCOSE [id number] 14:12:00* Test Item Value Reference Range Comments POC-GLUCOSE METER (DAVIAKER) (test nojk=9317) 162 mg/dL 70-110 TESTED AT [address] [address] POCT-GLUCOSE [id number] 11:21:00* Test Item Value Reference Range Comments POC-GLUCOSE METER (KORY) (test tzvi=6296) 84 mg/dL 70-110 TESTED AT [address] [address] PERIPHERAL BLOOD SMEAR - HOLD [id number] 11:18:00* Test Item Value Reference Range Comments PERIPHERAL SMEAR SAVE (KORY) (test zpjy=7659) saved [id number] 11:11:00* Test Item Value Reference Range Comments D-DIMER QUANTITATIVE (BEAKER) (test exdi=948) 0.73 MG/L FEU <0.50 Intended Use: The D-Dimer Assay can be used to aid in the diagnosis of Deep Vein Thrombosis (DVT) and Pulmonary Embolism Disease (PED).In patients with low pre- test probability, various studies concerning STA Liatest D-dimer test have repor jim that with a cutoff value of 0.50 MG/L FEU, the Negative Predictive Value ([employer] V) regarding the exclusion of thrombosis is within 95-100% range.HAPTOGLOBIN 2017-10-16 11:10:00* Test Item Value Reference Range Comments HAPTOGLOBIN (BEAKER) (test zusy=989) 62 mg/dL 14-258 LACTATE DEHYDROGENASE (LDH)2017-10-16 11:09:00* Test Item Value Reference Range Comments LACTATE DEHYDROGENASE (BEAKER) (test hegs=551) 224 U/L 125-220 [id number] 11:07:00* Test Item Value Reference Range Comments FIBRINOGEN LEVEL (BEAKER) (test wqxl=195) 303 mg/dl 225-434 [id number] 11:07:00* Test Item Value Reference Range Comments PROTIME (BEAKER) (test jfxa=659) 17.5 seconds 11.7-14.7 INR (BEAKER) (test jbsq=951) 1.4 <=5.9 PARTIAL THROMBOPLASTIN TIME (BEAKER) (test pihe=268) 30.5 seconds 22.5-36.0 RECOMMENDED COUMADIN/WARFARIN INR THERAPY RANGESSTANDARD DOSE: 2.0 - 3.0 Inclu abril: PROPHYLAXIS for venous thrombosis, systemic embolization; TREATMENT for kalen ous thrombosis and/or pulmonary embolus.HIGH RISK: Target INR is 2.5-3.5 for pat ients with mechanical heart valves.POCT-GLUCOSE [id number] 10:42:00* Test Item Value Reference Range Comments POC-GLUCOSE METER (BEAKER) (test qvgk=2768) 153 mg/dL 70-110 TESTED AT [facility] [address] [facility] [address] CREATININE, RANDOM [id number] 09:56:00* Test Item Value Reference Range Comments CREATININE URINE (BEAKER) (test olnv=907) 66.2 mg/dL Reference Range: No NormalsSODIUM, RANDOM [id number] 09:56:00* Test Item Value Reference Range Comments SODIUM URINE (BEAKER) (test salj=545) 51 meq/L Reference Range: No NormalsPOCT-GLUCOSE [id number] 09:05:00* Test Item Value Reference Range Comments POC-GLUCOSE METER (BEAKER) (test blks=1753) 68 mg/dL 70-110 Notified ASHANTI DUMONT/TESTED AT [facility] [address] [facility] [address] CBC W/PLT COUNT & AUTO [id number] 07:54:00* Test Item Value Reference Range Comments WHITE BLOOD CELL COUNT (BEAKER) (test yyvv=027) 2.8 K/ L 3.5-10.5 RED BLOOD CELL COUNT (BEAKER) (test kybe=497) 3.40 M/ L 3.93-5.22 HEMOGLOBIN (BEAKER) (test mrdv=282) 8.0 GM/DL 11.2-15.7 HEMATOCRIT (BEAKER) (test gazo=062) 25.9 % 34.1-44.9 MEAN CORPUSCULAR VOLUME (BEAKER) (test lubk=331) 76.2 fL 79.4-94.8 MEAN CORPUSCULAR HEMOGLOBIN (BEAKER) (test qbnc=978) 23.5 pg 25.6-32.2 MEAN CORPUSCULAR HEMOGLOBIN CONC (BEAKER) (test pptf=099) 30.9 GM/DL 32.2-35.5 RED CELL DISTRIBUTION WIDTH (BEAKER) (test ggkd=385) 19.9 % 11.7-14.4 PLATELET COUNT (BEAKER) (test mhjs=720) 12 K/CU MM 150-450 MEAN PLATELET VOLUME (BEAKER) (test mewv=129) fL 9.4-12.3 Unable to report due to abnormal Platelet population distribution. NUCLEATED RED BLOOD CELLS (BEAKER) (test azws=071) 0 /100 WBC 0-0 IMMATURE GRANULOCYTES-RELATIVE PERCENT (BEAKER) (test lmqm=9683) 1 % 0-1 NEUTROPHILS RELATIVE PERCENT (BEAKER) (test uoii=727) 78 % LYMPHOCYTES RELATIVE PERCENT (BEAKER) (test qzzw=090) 5 % MONOCYTES RELATIVE PERCENT (BEAKER) (test jwmj=059) 6 % EOSINOPHILS RELATIVE PERCENT (BEAKER) (test tjed=095) 9 % BASOPHILS RELATIVE PERCENT (BEAKER) (test fssg=083) 1 % NEUTROPHILS ABSOLUTE COUNT (BEAKER) (test xuqv=560) 2.17 K/ L 1.56-6.13 LYMPHOCYTES ABSOLUTE COUNT (BEAKER) (test ospe=911) 0.15 K/ L 1.18-3.74 MONOCYTES ABSOLUTE COUNT (BEAKER) (test quma=746) 0.16 K/ L 0.24-0.36 EOSINOPHILS ABSOLUTE COUNT (BEAKER) (test kiqu=055) 0.24 K/ L 0.04-0.36 BASOPHILS ABSOLUTE COUNT (BEAKER) (test oymv=657) 0.02 K/ L 0.01-0.08 (MANUAL DIFFERENTIAL)2017-10-16 07:54:00* Test Item Value Reference Range Comments TOTAL COUNTED (BEAKER) (test gqtf=6823) WBC MORPHOLOGY (BEAKER) (test ydxh=823) Normal PLT MORPHOLOGY (BEAKER) (test oyut=861) Normal RBC MORPHOLOGY (BEAKER) (test keno=481) Normal [id number] 07:50:00* Test Item Value Reference Range Comments MAGNESIUM (BEAKER) (test xoka=740) 1.2 mg/dL 1.6-2.6 BASIC METABOLIC [id number] 06:39:00* Test Item Value Reference Range Comments SODIUM (BEAKER) (test qybi=121) 142 meq/L 136-145 POTASSIUM (BEAKER) (test stwx=927) 3.5 meq/L 3.5-5.1 CHLORIDE (BEAKER) (test bvye=514) 110 meq/L 98-107 CO2 (BEAKER) (test ewpj=559) 24 meq/L 22-29 BLOOD UREA NITROGEN (BEAKER) (test tveq=333) 32 mg/dL 7-21 CREATININE (BEAKER) (test rnsc=855) 1.49 mg/dL 0.57-1.25 GLUCOSE RANDOM (BEAKER) (test gndh=507) 99 mg/dL 70-105 CALCIUM (BEAKER) (test fbcw=387) 9.4 mg/dL 8.4-10.2 EGFR (BEAKER) (test owdm=4985) 41 mL/min/1.73 sq m ESTIMATED GFR IS NOT ACCURATE CREATININE CLEARANCE IN PREDICTING GLOMERULAR FILTRATION RATE. ESTIMATED GFR IS NOT APPLICABLE FOR DIALYSIS PATIENTS. DIGOXIN [id number] 06:38:00* Test Item Value Reference Range Comments DIGOXIN LEVEL (BEAKER) (test oyar=905) 0.6 ng/mL 0.8-2.0 POCT-GLUCOSE [id number] 06:27:00* Test Item Value Reference Range Comments POC-GLUCOSE METER (BEAKER) (test zsyo=6837) 117 mg/dL 70-110 TESTED AT [address] [address] POCT-GLUCOSE [id number] 00:52:00* Test Item Value Reference Range Comments POC-GLUCOSE METER (BEAKER) (test wcnk=8075) 47 mg/dL 70-110 Notified ASHANTI DUMONT/TESTED AT [address] [address] URINALYSIS W/ REFLEX URINE [id number] 00:04:00* Test Item Value Reference Range Comments COLOR (BEAKER) (test cvfx=025) Light Yellow CLARITY (BEAKER) (test bugh=474) Clear SPECIFIC GRAVITY UA (BEAKER) (test mwty=590) 1.010 1.001-1.035 PH UA (BEAKER) (test duxa=550) 5.0 5.0-8.0 PROTEIN UA (BEAKER) (test oyzc=595) 20 mg/dL Negative GLUCOSE UA (BEAKER) (test uciz=657) Negative Negative KETONES UA (BEAKER) (test hruu=998) Negative Negative BILIRUBIN UA (BEAKER) (test dopm=351) Negative Negative BLOOD UA (BEAKER) (test ayht=587) Small Negative NITRITE UA (BEAKER) (test mcnq=128) Negative Negative LEUKOCYTE ESTERASE UA (BEAKER) (test equt=441) Small Negative UROBILINOGEN UA (BEAKER) (test utqf=030) 0.2 mg/dL 0.2-1.0 RBC UA (BEAKER) (test oxbn=578) 8 /HPF WBC UA (BEAKER) (test tzsc=173) 5 /HPF SQUAMOUS EPITHELIAL (BEAKER) (test fafn=736) 1 /HPF AMORPHOUS CRYSTALS (BEAKER) (test dbuo=1702) Occasional SOURCE(BEAKER) (test clou=7686) POCT-GLUCOSE [id number] 23:40:00* Test Item Value Reference Range Comments POC-GLUCOSE METER (BEAKER) (test ttam=6764) 80 mg/dL 70-110 TESTED AT [address] [address] POCT-GLUCOSE [id number] 22:37:00* Test Item Value Reference Range Comments POC-GLUCOSE METER (BEAKER) (test cfmr=9269) 49 mg/dL 70-110 TESTED AT [address] [address] CBC W/PLT COUNT & AUTO [id number] 22:36:00* Test Item Value Reference Range Comments WHITE BLOOD CELL COUNT (BEAKER) (test fimd=149) 3.7 K/ L 3.5-10.5 RED BLOOD CELL COUNT (BEAKER) (test xhvy=450) 3.75 M/ L 3.93-5.22 HEMOGLOBIN (BEAKER) (test ibxn=137) 9.1 GM/DL 11.2-15.7 HEMATOCRIT (BEAKER) (test bdwo=539) 28.4 % 34.1-44.9 MEAN CORPUSCULAR VOLUME (BEAKER) (test ipro=232) 75.7 fL 79.4-94.8 MEAN CORPUSCULAR HEMOGLOBIN (BEAKER) (test oimz=286) 24.3 pg 25.6-32.2 MEAN CORPUSCULAR HEMOGLOBIN CONC (BEAKER) (test gozj=767) 32.0 GM/DL 32.2-35.5 RED CELL DISTRIBUTION WIDTH (BEAKER) (test wxun=552) 20.5 % 11.7-14.4 PLATELET COUNT (BEAKER) (test svcz=177) 9 K/CU MM 150-450 MEAN PLATELET VOLUME (BEAKER) (test ludw=249) fL 9.4-12.3 Unable to report due to abnormal Platelet population distribution. NUCLEATED RED BLOOD CELLS (BEAKER) (test dzxq=042) 0 /100 WBC 0-0 NEUTROPHILS RELATIVE PERCENT (BEAKER) (test tbdt=202) 83 % LYMPHOCYTES RELATIVE PERCENT (BEAKER) (test bebr=728) 4 % MONOCYTES RELATIVE PERCENT (BEAKER) (test ogqk=772) 5 % EOSINOPHILS RELATIVE PERCENT (BEAKER) (test iaez=526) 4 % BASOPHILS RELATIVE PERCENT (BEAKER) (test nonx=975) 1 % NEUTROPHILS ABSOLUTE COUNT (BEAKER) (test zzvr=499) 3.08 K/ L 1.56-6.13 LYMPHOCYTES ABSOLUTE COUNT (BEAKER) (test qkrr=956) 0.16 K/ L 1.18-3.74 MONOCYTES ABSOLUTE COUNT (BEAKER) (test bmbl=522) 0.20 K/ L 0.24-0.36 EOSINOPHILS ABSOLUTE COUNT (BEAKER) (test qcvo=497) 0.16 K/ L 0.04-0.36 BASOPHILS ABSOLUTE COUNT (BEAKER) (test lrcv=191) 0.02 K/ L 0.01-0.08 IMMATURE GRANULOCYTES-RELATIVE PERCENT (BEAKER) (test fatn=6294) 2 % 0-1 BASIC METABOLIC [id number] 22:34:00* Test Item Value Reference Range Comments SODIUM (BEAKER) (test hwuy=901) 142 meq/L 136-145 POTASSIUM (BEAKER) (test codd=097) 3.4 meq/L 3.5-5.1 CHLORIDE (BEAKER) (test ellg=408) 109 meq/L 98-107 CO2 (BEAKER) (test vtdw=207) 26 meq/L 22-29 BLOOD UREA NITROGEN (BEAKER) (test onsd=494) 35 mg/dL 7-21 CREATININE (BEAKER) (test rmzj=284) 1.57 mg/dL 0.57-1.25 GLUCOSE RANDOM (BEAKER) (test hwav=760) 38 mg/dL 70-105 CALCIUM (BEAKER) (test vhmb=702) 9.6 mg/dL 8.4-10.2 EGFR (BEAKER) (test pxjf=0420) 39 mL/min/1.73 sq m ESTIMATED GFR IS NOT ACCURATE CREATININE CLEARANCE IN PREDICTING GLOMERULAR FILTRATION RATE. ESTIMATED GFR IS NOT APPLICABLE FOR DIALYSIS PATIENTS. [id number] 22:28:00* Test Item Value Reference Range Comments MAGNESIUM (BEAKER) (test wrqk=345) 1.1 mg/dL 1.6-2.6 ALKALINE [id number] 22:28:00* Test Item Value Reference Range Comments ALKALINE PHOSPHATASE (BEAKER) (test zobh=832) 58 U/L 40-150 POCT-GLUCOSE [id number] 10:05:00* Test Item Value Reference Range Comments POC-GLUCOSE METER (BEAKER) (test wgzr=9256) 243 mg/dL 70-110 TESTED AT [facility] [address] [facility] [id number]
[2019-08-16] MEDS ORDERED: SODIUM CHLORIDE 0.9% 1000ML 1,000 ML IV STA (16:05)
[2019-08-16] MEDS ORDERED: ALBUTEROL/IPRATROPIUM 3 ML NEB NEB STA (16:11)
[2019-08-16 16:16] LABS: BASOPHILS % 0.2 % (0.0-1.0); EOSINOPHILS # (AUTO) 0.6 (0.0-0.4); EOSINOPHILS % 6.6 % (0.0-6.0); HEMATOCRIT 37.3 % (34.2-44.1); HEMOGLOBIN 11.6 g/dL (12.0-16.0); LYMPHOCYTES # (AUTO) 3.8 (1.0-3.2); LYMPHOCYTES % 42.7 % (18.0-39.1); MEAN CORPUSCULAR HEMOGLOBIN 26.1 pg (28-32); MEAN CORPUSCULAR HGB CONC 31.1 g/dL (31-35); MONOCYTES # (AUTO) 1.8 (0.2-0.8); NEUTROPHILS # (AUTO) 2.7 (2.1-6.9); NEUTROPHILS % 30.2 % (38.7-80.0); PLATELET COUNT 158 x10e3/uL (140-360); RED BLOOD COUNT 4.44 x10e6/uL (3.6-5.1); RED CELL DISTRIBUTION WIDTH 15.3 % (11.7-14.4)
[2019-08-16 16:28] LABS: ALANINE AMINOTRANSFERASE 10 IU/L (0-55); ALBUMIN 3.8 g/dL (3.5-5.0); ALBUMIN/GLOBULIN RATIO 1.2 (0.8-2.0); ALKALINE PHOSPHATASE 69 IU/L (40-150); BLOOD UREA NITROGEN 12 mg/dL (7-26); BUN/CREATININE RATIO 13 (6-25); CALCIUM 9.8 mg/dL (8.4-10.2); CARBON DIOXIDE 28 mmol/L (22-29); CHLORIDE 105 mmol/L (98-107); CREATINE KINASE 53 IU/L (29-168); CREATININE, SERUM 0.93 mg/dL (0.57-1.11); EST GLOMERULAR FILTRATION RATE 58 ML/MIN (60-); GLUCOSE 130 mg/dL (74-118); SODIUM 144 mmol/L (136-145)
--- NOTE | 2019-08-16 16:32 | Diagnostic Imaging Report ---
EXAMINATION: PA and lateral views of the chest. COMPARISON: None CLINICAL HISTORY: dyspnea DISCUSSION: Lines/tubes: None. Lungs: The lungs are well inflated and clear. No pneumonia or pulmonary edema. Pleura: No pleural effusion or pneumothorax. Heart and mediastinum: The cardiomediastinal silhouette is normal. Bones and soft tissues: No acute bony abnormalities. IMPRESSION: No acute cardiopulmonary abnormalities. Signed by: Dr. Carlitos Domínguez M.D. on 08/16/2019 4:30 PM
[2019-08-16 16:42] LABS: B-TYPE NATRIURETIC PEPTIDE2 238.9 pg/mL (0-100)
[2019-08-16 16:46] LABS: EOSINOPHILS % (MANUAL) 3 % (0-7); LYMPHOCYTES % (MANUAL) 39 % (19-48); MONOCYTES % (MANUAL) 5 % (3.4-9.0); NEUTROPHILS % (MANUAL) 45 % (40-74)
[2019-08-16 16:47] LABS: BAND NEUTROPHILS % (MANUAL) 2 %; PLATELET ESTIMATE ADEQUATE; PLATELET MORPHOLOGY COMMENT NORMAL; RBC MORPHOLOGY COMMENT NORMAL
[2019-08-16] MEDS ORDERED: ASPIRIN 81 MG CHEW TAB PO ONE (17:00)
[2019-08-16] MEDS ORDERED: ALBUTEROL SULF 0.083% NEB SOLN 3 ML NEB NEB PRN (17:00)
[2019-08-16] MEDS ORDERED: ACETAMINOPHEN 325 MG TAB PO PRN (18:00)
[2019-08-16] MEDS ORDERED: HYDRALAZINE HCL 20 MG/ML VIAL IV PRN (18:00)
[2019-08-16] MEDS ORDERED: ONDANSETRON HCL INJ 2MG/ML 2ML 2 MG/ML VIAL IV PRN (18:00)
[2019-08-16] MEDS ORDERED: ACETAMINOPHEN/CODEINE 300MG - 30MG TAB PO PRN (18:00)
[2019-08-16] MEDS ORDERED: POTASSIUM CHLORIDE 20 MEQ TAB CR PO SCH (18:00)
[2019-08-16] MEDS ORDERED: FUROSEMIDE INJ 10 MG/ML 4 ML VIAL IV SCH (18:30)
--- NOTE | 2019-08-16 18:35 | Diagnostic Imaging Report ---
EXAMINATION: CT scan of the chest without contrast. TECHNIQUE: Helical CT images of the chest were performed from the lung apices to the level of the adrenal glands. No intravenous contrast was administered Coronal and sagittal reformatted images were obtained. Dose modulation, iterative reconstruction, and/or weight based adjustment of the mA/kV was utilized to reduce the radiation dose to as low as reasonably achievable. COMPARISON: None. CLINICAL HISTORY:Heart failure versus pneumonia DISCUSSION: ABSENCE OF INTRAVENOUS CONTRAST DECREASES SENSITIVITY FOR DETECTION OF FOCAL LESIONS AND VASCULAR PATHOLOGY. LINES/TUBES: None. LUNGS AND AIRWAYS: Scattered nodularity, most prominent in the superior segment of the left lower lobe measuring 9 mm on image 46 and within the middle lobe measuring 8 mm on image 105. Right para median consolidation axial image 75 with adjacent tree-in-bud nodularity. PLEURA: No pneumothorax or pleural effusions. HEART AND MEDIASTINUM: The thyroid gland is normal. The main pulmonary artery is enlarged measuring 3.8 cm in dimension LYMPH NODES: Multiple enlarged mediastinal lymph nodes for example a right lower paratracheal node measures 1.2 cm and 1.2 cm image 51. These are greater than expected for reactive from pneumonia. ABDOMEN: Limited contrast-enhanced views of the upper abdomen show no abnormality within the visualized liver, spleen, pancreas, or kidneys. The adrenal glands are normal. BONES AND SOFT TISSUES: No acute bony abnormalities. IMPRESSION: Right medial lower lobe pneumonia with adjacent bronchiolitis. Enlarged mediastinal lymph nodes greater than expected than reactive from pneumonia. Scattered pulmonary nodules measuring up to 9 mm. Recommend follow-up CT of the chest 3 months. Enlargement of the main pulmonary artery can be seen in pulmonary artery hypertension. Signed by: Dr. Carlitos Domínguez M.D. on 08/16/2019 6:33 PM
[2019-08-16] MEDS ORDERED: ALBUTEROL/IPRATROPIUM 3 ML NEB NEB PRN (19:00)
[2019-08-16 19:10] VITALS: BP 127/62
[2019-08-16 20:00] VITALS: BP 122/62
[2019-08-16] MEDS: FUROSEMIDE INJ 10 MG/ML 4 ML VIAL IV SCH (20:20)
[2019-08-16] MEDS: POTASSIUM CHLORIDE 20 MEQ TAB CR PO SCH (20:29)
[2019-08-16 20:32] VITALS: BP 122/62
[2019-08-16] MEDS: METHYLPREDNISOLONE SOD SUCC 40 MG/ML VIAL 1ML IV SCH (21:15)
[2019-08-16] MEDS ORDERED: PANTOPRAZOLE SO20 MG PO (21:53)
[2019-08-16] MEDS ORDERED: VITAMIN D400 UNIT PO (21:53)
[2019-08-16] MEDS ORDERED: FERROUS SULFAT325 MG PO (21:53)
[2019-08-16] MEDS ORDERED: METFORMIN HCL500 MG PO (21:53)
[2019-08-16] MEDS ORDERED: PRAVASTATIN SOD10 MG PO (21:53)
[2019-08-16] MEDS ORDERED: METOPROLOL TART25 MG PO (21:53)
[2019-08-16] MEDS ORDERED: ASPIR 8181 MG PO (21:53)
[2019-08-16] MEDS ORDERED: LEVAQUIN500 MG PO (21:53)
[2019-08-16] MEDS ORDERED: XARELTO10 MG PO (21:53)
[2019-08-16] MEDS ORDERED: DIGOXIN125 MCG PO (21:53)
[2019-08-16] MEDS ORDERED: OMEGA-31000 MG PO (21:53)
[2019-08-16 22:54] LABS: CREATINE KINASE MB 1.4 ng/mL (0-5.0)
[2019-08-16 23:47] VITALS: BP 131/77
[2019-08-17] VITALS (7 sets, daily range): BP systolic 119–145; BP diastolic 3–71
[2019-08-17 03:54] LABS: BASOPHILS % 0.2 % (0.0-1.0); EOSINOPHILS % 0.5 % (0.0-6.0); HEMATOCRIT 37.9 % (34.2-44.1); HEMOGLOBIN 11.8 g/dL (12.0-16.0); LYMPHOCYTES # (AUTO) 2.3 (1.0-3.2); MEAN CORPUSCULAR HEMOGLOBIN 26.3 pg (28-32); MEAN CORPUSCULAR HGB CONC 31.1 g/dL (31-35); MEAN CORPUSCULAR VOLUME 84.4 fL (81-99); MONOCYTES # (AUTO) 1.1 (0.2-0.8); PLATELET COUNT 130 x10e3/uL (140-360); RED BLOOD COUNT 4.49 x10e6/uL (3.6-5.1); RED CELL DISTRIBUTION WIDTH 15.2 % (11.7-14.4)
[2019-08-17 04:02] LABS: ANION GAP 15.4 mmol/L (8-16); CALCIUM 9.7 mg/dL (8.4-10.2); CHOL/HDL RATIO 2.9 (3.0-3.6); CREATININE, SERUM 1.01 mg/dL (0.57-1.11); POTASSIUM 4.4 mmol/L (3.5-5.1)
[2019-08-17 04:29] LABS: THYROID STIMULATING HORMONE 0.44 uIU/mL (0.350-4.940)
[2019-08-17] MEDS: METHYLPREDNISOLONE SOD SUCC 40 MG/ML VIAL 1ML IV SCH ×3 (05:22→20:08)
[2019-08-17 07:01] LABS: CREATINE KINASE 38 IU/L (29-168)
[2019-08-17 07:03] LABS: ALBUMIN 3.4 g/dL (3.5-5.0); ALBUMIN/GLOBULIN RATIO 1.2 (0.8-2.0); ANION GAP 15.4 mmol/L (8-16); CALCIUM 9.5 mg/dL (8.4-10.2); POTASSIUM 4.4 mmol/L (3.5-5.1)
[2019-08-17] MEDS ORDERED: ALBUTEROL/IPRATROPIUM 3 ML NEB NEB PRN (08:45)
[2019-08-17] MEDS ORDERED: DEXTROSE 50% SYRINGE 50 ML IV PRN (08:45)
[2019-08-17] MEDS: FAMOTIDINE 20 MG TAB PO SCH ×2 (09:45→16:45)
[2019-08-17] MEDS: POTASSIUM CHLORIDE 20 MEQ TAB CR PO SCH ×2 (09:45→20:09)
[2019-08-17] MEDS: ASPIRIN 81 MG CHEW TAB PO SCH (09:45)
[2019-08-17] MEDS: FERROUS SULFATE 325 MG TAB PO SCH (09:46)
[2019-08-17] MEDS: DIGOXIN 0.125 MG TAB PO SCH (09:46)
[2019-08-17] MEDS: METOPROLOL TARTRATE 25 MG TAB PO SCH (09:46)
[2019-08-17] MEDS: PANTOPRAZOLE SOD 40 MG TABEC PO SCH (09:47)
[2019-08-17] MEDS: OMEGA 3 POLYUNSAT FATTY ACIDS 1000 MG SOFTGEL PO SCH (09:47)
[2019-08-17] MEDS: GUAIFENESIN 600MG/DEXTROMETHORPHAN 30MG TABSR PO SCH ×2 (09:47→16:45)
[2019-08-17] MEDS: ASCORBIC ACID 500 MG TAB PO SCH (09:47)
[2019-08-17] MEDS: FUROSEMIDE INJ 10 MG/ML 4 ML VIAL IV SCH ×2 (09:52→20:09)
[2019-08-17] MEDS: CEFTRIAXONE SOD 1 GM/NS 50 ML 50 ML IV SCH (10:00)
[2019-08-17] MEDS ORDERED: SODIUM CHLORIDE 0.9% 250ML 250 ML ONE (10:03)
[2019-08-17] MEDS: AZITHROMYCIN 500MG/NS 250 ML 250 ML IV SCH (10:44)
[2019-08-17] MEDS: INSULIN LISPRO 100 UNIT/1 ML 3ML VIAL SQ SCH ×3 (12:00→20:09)
[2019-08-17] MEDS: ALBUTEROL/IPRATROPIUM 3 ML NEB NEB SCH ×2 (13:25→19:48)
--- NOTE | 2019-08-17 15:03 | Consultation ---
DATE OF CONSULTATION: 08/17/2019 Pulmonary Critical Care Consultation CHIEF COMPLAINT: Congestion and cough. HISTORY OF PRESENT ILLNESS: The patient is a 79-year-old woman. She uses a rescue inhaler and a nebulizer as an outpatient. She complains of worsening dyspnea for about a week. She notes cough and congestion. She denies any fever. She received some Solu-Medrol along with antibiotics and bronchodilators in the emergency department and she feels somewhat better. PAST SURGICAL HISTORY: 1. Status post hysterectomy. 2. Status post knee surgery. PAST MEDICAL HISTORY: 1. Atrial fibrillation. 2. Diabetes mellitus. 3. Hyperlipidemia. FAMILY HISTORY: The patient has a history of diabetes and cancer in the family. SOCIAL HISTORY: The patient quit smoking about 40 years ago. She is not an active drinker. ALLERGIES: THE PATIENT IS ALLERGIC TO SULFA. REVIEW OF SYSTEMS: The patient is afebrile. The patient does not complain of headache. There is no neck pain. The patient did have some cough and congestion. The patient has no chest pain. There is some mild dyspnea. She has no leg edema. PHYSICAL EXAMINATION: VITAL SIGNS: The patient is afebrile. The vital signs are stable. HEENT: Shows no facial swelling or erythema. CARDIAC: Reveals a regular rate and rhythm with normal S1 and S2. LUNGS: Auscultation of lungs shows clear breath sounds bilaterally. There is no wheezing. ABDOMEN: Soft, nontender. There is no rebound or guarding. EXTREMITIES: Show no leg edema or calf tenderness. There is no cyanosis or clubbing. SKIN: Shows no rashes. NEUROLOGIC: Shows no focal abnormalities. LABORATORY DATA: The white blood cell count is 6.4 and hemoglobin is 11.8. The platelet count is 130. The BUN to creatinine ratio is 16 to 1 and the blood sugar is 186. CT scan of the chest shows right medial lower lobe pneumonia with some inflammation. The patient also has some borderline enlarged mediastinal lymph nodes as well as an 8 mm right middle lobe nodule and a 9 mm left lower lobe nodule. IMPRESSION: 1. Community-acquired pneumonia. 2. Chronic obstructive pulmonary disease with acute exacerbation. 3. Chronic lymphocytic leukemia and received chemotherapy about a year ago. 4. Borderline mediastinal adenopathy and possible pulmonary nodules on CT scan. PLAN: 1. Complete full course of antibiotics. 2. Taper steroids. 3. Continue bronchodilators as needed. 4. The patient will need a repeat CT scan as an outpatient in 3 months. MD SHAHRIAR Zheng/DARIN /[id number]
[2019-08-17 16:11] LABS: BAND NEUTROPHILS % (MANUAL) 1 %; LYMPHOCYTES % (MANUAL) 43 % (19-48); MONOCYTES % (MANUAL) 4 % (3.4-9.0); NEUTROPHILS % (MANUAL) 50 % (40-74); PLATELET ESTIMATE ADEQUATE; PLATELET MORPHOLOGY COMMENT NORMAL; RBC MORPHOLOGY COMMENT NORMAL
[2019-08-17] MEDS: RIVAROXABAN 10 MG TABLET PO SCH (16:45)
[2019-08-17] MEDS: PRAVASTATIN 20 MG TAB PO SCH (20:09)
[2019-08-18] VITALS (8 sets, daily range): BP systolic 110–140; BP diastolic 60–79
[2019-08-18] MEDS: ALBUTEROL/IPRATROPIUM 3 ML NEB NEB SCH ×4 (01:12→19:50)
[2019-08-18 03:47] LABS: BASOPHILS % 0.1 % (0.0-1.0); HEMATOCRIT 36.1 % (34.2-44.1); HEMOGLOBIN 11.3 g/dL (12.0-16.0); LYMPHOCYTES # (AUTO) 2.7 (1.0-3.2); LYMPHOCYTES % 32.4 % (18.0-39.1); MEAN CORPUSCULAR HEMOGLOBIN 26.2 pg (28-32); MEAN CORPUSCULAR HGB CONC 31.3 g/dL (31-35); MEAN CORPUSCULAR VOLUME 83.6 fL (81-99); MONOCYTES # (AUTO) 0.9 (0.2-0.8); MONOCYTES % 10.8 % (4.4-11.3); NEUTROPHILS # (AUTO) 4.6 (2.1-6.9); NEUTROPHILS % 55.9 % (38.7-80.0); PLATELET COUNT 146 x10e3/uL (140-360); RED BLOOD COUNT 4.32 x10e6/uL (3.6-5.1)
[2019-08-18 04:12] LABS: ANION GAP 17.2 mmol/L (8-16); CALCIUM 9.6 mg/dL (8.4-10.2); CREATININE, SERUM 1.09 mg/dL (0.57-1.11); MAGNESIUM 1.7 MG/DL (1.3-2.1); POTASSIUM 4.2 mmol/L (3.5-5.1)
[2019-08-18] MEDS: CEFTRIAXONE SOD 1 GM/NS 50 ML 50 ML IV SCH (08:11)
[2019-08-18] MEDS: PANTOPRAZOLE SOD 40 MG TABEC PO SCH (08:11)
[2019-08-18] MEDS: FAMOTIDINE 20 MG TAB PO SCH ×2 (08:11→16:43)
[2019-08-18] MEDS: AZITHROMYCIN 500MG/NS 250 ML 250 ML IV SCH (08:11)
[2019-08-18] MEDS: ASPIRIN 81 MG CHEW TAB PO SCH (08:11)
[2019-08-18] MEDS: FERROUS SULFATE 325 MG TAB PO SCH (08:11)
[2019-08-18] MEDS: METHYLPREDNISOLONE SOD SUCC 40 MG/ML VIAL 1ML IV SCH ×2 (08:11→21:29)
[2019-08-18] MEDS: FUROSEMIDE INJ 10 MG/ML 4 ML VIAL IV SCH (08:11)
[2019-08-18] MEDS: DIGOXIN 0.125 MG TAB PO SCH (08:12)
[2019-08-18] MEDS: METOPROLOL TARTRATE 25 MG TAB PO SCH (08:12)
[2019-08-18] MEDS: ASCORBIC ACID 500 MG TAB PO SCH (08:12)
[2019-08-18] MEDS: POTASSIUM CHLORIDE 20 MEQ TAB CR PO SCH (08:12)
[2019-08-18] MEDS: GUAIFENESIN 600MG/DEXTROMETHORPHAN 30MG TABSR PO SCH ×2 (08:12→16:43)
[2019-08-18] MEDS: OMEGA 3 POLYUNSAT FATTY ACIDS 1000 MG SOFTGEL PO SCH (08:12)
[2019-08-18] MEDS ORDERED: ONDANSETRON HCL 4 MG ORAL DISINTEGRATING TAB PO PRN (08:15)
[2019-08-18] MEDS: INSULIN LISPRO 100 UNIT/1 ML 3ML VIAL SQ SCH ×4 (08:26→21:00)
[2019-08-18] MEDS: RIVAROXABAN 10 MG TABLET PO SCH (16:43)
--- NOTE | 2019-08-18 16:59 | Progress Note ---
DATE: 08/18/2019 Pulmonary Critical Care Progress Note SUBJECTIVE: The patient feels better. She has less dyspnea. She is not having cough or fever. PHYSICAL EXAMINATION: VITAL SIGNS: Stable. CARDIAC: Reveals regular rate and rhythm with normal S1, S2. LUNGS: Auscultation of lungs shows clear breath sounds bilaterally. There is no wheezing. ABDOMEN: Soft, nontender. There is no rebound or guarding. EXTREMITIES: Show no leg edema or calf tenderness. There is no cyanosis or clubbing. SKIN: Shows no rashes. NEUROLOGIC: Shows no focal abnormalities. LABORATORY DATA: BUN to creatinine ratio is 32 to 1.09. Other electrolytes within normal limits. White blood cell count is 8.2 and hemoglobin is 10.3. The platelet count is 146. IMPRESSION: 1. Community-acquired pneumonia. 2. Chronic obstructive pulmonary disease with acute exacerbation. 3. Chronic lymphocytic leukemia. PLAN: 1. Continue steroid taper. 2. Complete antibiotics. 3. The patient will need a CT scan as an outpatient in 3 months. 4. The patient will need PFTs as an outpatient after her pneumonia is treated. Jg Armstrong MD [facility]/MODL /[id number]
[2019-08-18] MEDS: PRAVASTATIN 20 MG TAB PO SCH (21:29)
[2019-08-19] VITALS (7 sets, daily range): BP systolic 114–130; BP diastolic 68–75
[2019-08-19] MEDS: ALBUTEROL/IPRATROPIUM 3 ML NEB NEB SCH ×4 (00:30→18:28)
--- NOTE | 2019-08-19 00:51 | Consultation ---
DATE OF CONSULTATION: 08/18/2019 Cardiology Consult Note REASON FOR CONSULT: Atrial fibrillation with RVR. CHIEF COMPLAINT: Shortness of breath and wheezing. HISTORY OF PRESENT ILLNESS: The patient is a 79-year-old female with history of known atrial fibrillation. The patient of Dr. Turner at [facility], who presents with worsening shortness of breath, cough, and wheezing, was found to have community-acquired pneumonia and COPD exacerbation, was noted to be in atrial fibrillation with RVR with heart rate in the 120s at presentation. Currently, the patient states that she is feeling better. Continues to have some wheezing; however, this is much improved from admission per the patient. Denies any chest pain. Denied any orthopnea or PND. Has baseline shortness of breath. No prior history of CAD. REVIEW OF SYSTEMS: As per HPI, otherwise negative. PAST MEDICAL HISTORY: 1. AFib, on Xarelto. 2. Hypertension. 3. COPD. SOCIAL HISTORY: She does not smoke, drink, or abuse drugs. FAMILY HISTORY: Noncontributory. OUTPATIENT MEDICATIONS: Reviewed. ALLERGIES: REVIEWED. THE PATIENT IS ALLERGIC TO SULFA ANTIBIOTICS. OBJECTIVE: VITAL SIGNS: Temperature afebrile, pulse 80, respiratory rate 15, blood pressure 119/74, saturating 98% on room air. GENERAL: Elderly female, well developed, well nourished, no acute distress. CARDIOVASCULAR: Irregular rate and rhythm. No murmurs, rubs, or gallops. LUNGS: Scattered wheezes, bilateral lungs. ABDOMEN: Soft, nontender, nondistended. NEURO AND PSYCH: Alert and oriented to person, place, and time. Normal affect. INPATIENT MEDICATIONS: Reviewed. LABORATORY DATA: Reviewed. TELEMETRY DATA: Reviewed, shows rate-controlled atrial fibrillation. IMAGING DATA: Reviewed. Chest CT shows right medial lower lobe pneumonia. ASSESSMENT: 1. Atrial fibrillation with RVR, currently rate controlled. 2. Acute chronic obstructive pulmonary disease exacerbation. 3. Community-acquired pneumonia. PLAN: Continue metoprolol, digoxin for rate control and Xarelto for anticoagulation. We will titrate metoprolol as needed for rate control of atrial fibrillation. Thank you for this consult. We will continue to follow. MD HERMELINDA RichardsonP/MODDidier /[id number]
[2019-08-19 04:20] LABS: ANION GAP 15.6 mmol/L (8-16); POTASSIUM 4.6 mmol/L (3.5-5.1)
[2019-08-19 04:21] LABS: CALCIUM 9.1 mg/dL (8.4-10.2); CREATININE, SERUM 1.32 mg/dL (0.57-1.11); MAGNESIUM 1.9 MG/DL (1.3-2.1)
[2019-08-19 04:55] LABS: BASOPHILS % 0.1 % (0.0-1.0); HEMATOCRIT 33.9 % (34.2-44.1); HEMOGLOBIN 10.8 g/dL (12.0-16.0); LYMPHOCYTES % 29.8 % (18.0-39.1); MEAN CORPUSCULAR HEMOGLOBIN 26.5 pg (28-32); MEAN CORPUSCULAR HGB CONC 31.9 g/dL (31-35); MEAN CORPUSCULAR VOLUME 83.3 fL (81-99); MONOCYTES % 9.5 % (4.4-11.3); NEUTROPHILS % 59.9 % (38.7-80.0); PLATELET COUNT 152 x10e3/uL (140-360); RED BLOOD COUNT 4.07 x10e6/uL (3.6-5.1); RED CELL DISTRIBUTION WIDTH 15.1 % (11.7-14.4)
[2019-08-19 04:56] LABS: LYMPHOCYTES # (AUTO) 2.1 (1.0-3.2); MONOCYTES # (AUTO) 0.7 (0.2-0.8); NEUTROPHILS # (AUTO) 4.2 (2.1-6.9)
[2019-08-19] MEDS ORDERED: INSULIN LISPRO 100 UNIT/1 ML 3ML VIAL SQ ONE (06:50)
[2019-08-19] MEDS: INSULIN LISPRO 100 UNIT/1 ML 3ML VIAL SQ SCH ×4 (08:00→21:15)
[2019-08-19] MEDS ORDERED: FUROSEMIDE 20 MG TAB PO SCH (09:00)
[2019-08-19] MEDS ORDERED: SODIUM CHLORIDE 0.9% 250ML 250 ML ONE (09:35)
[2019-08-19] MEDS: ASPIRIN 81 MG CHEW TAB PO SCH (09:38)
[2019-08-19] MEDS: PANTOPRAZOLE SOD 40 MG TABEC PO SCH (09:38)
[2019-08-19] MEDS: FERROUS SULFATE 325 MG TAB PO SCH (09:38)
[2019-08-19] MEDS: FAMOTIDINE 20 MG TAB PO SCH ×2 (09:38→16:33)
[2019-08-19] MEDS: DIGOXIN 0.125 MG TAB PO SCH (09:39)
[2019-08-19] MEDS: OMEGA 3 POLYUNSAT FATTY ACIDS 1000 MG SOFTGEL PO SCH (09:39)
[2019-08-19] MEDS: METOPROLOL TARTRATE 25 MG TAB PO SCH (09:39)
[2019-08-19] MEDS: ASCORBIC ACID 500 MG TAB PO SCH (09:39)
[2019-08-19] MEDS: GUAIFENESIN 600MG/DEXTROMETHORPHAN 30MG TABSR PO SCH ×2 (09:39→16:33)
[2019-08-19] MEDS: CEFTRIAXONE SOD 1 GM/NS 50 ML 50 ML IV SCH (09:42)
[2019-08-19] MEDS: METHYLPREDNISOLONE SOD SUCC 40 MG/ML VIAL 1ML IV SCH (09:43)
[2019-08-19] MEDS: AZITHROMYCIN 500MG/NS 250 ML 250 ML IV SCH (11:00)
--- NOTE | 2019-08-19 12:02 | Progress Note ---
DATE: 08/19/2019 Cardiology Progress Note SUBJECTIVE: The patient feeling better. Some mild wheezing and shortness of breath. No chest pain or palpitations. OBJECTIVE: VITAL SIGNS: Temperature is 97.0, heart rate is 92, respirations 20, blood pressure is 128/68, and oxygen saturation 99% on 2 L nasal cannula. GENERAL: Well-appearing, in no apparent distress. HEAD: Normocephalic and atraumatic. EYES: Conjunctivae are clear. NECK: No JVD. CARDIOVASCULAR: Irregularly irregular systolic murmur at the right and left sternal borders. LUNGS: Mild scattered wheezing. No rales. ABDOMEN: Soft, nontender, and nondistended. EXTREMITIES: Trace edema. TELEMETRY: Monitoring revealed atrial fibrillation. LABORATORY DATA: Showed hemoglobin of 10.8 and potassium 4.6. Glucose of 415 and creatinine of 1.32. IMPRESSION: 1. Atrial fibrillation. 2. Foglr-[id number] obstructive pulmonary disease exacerbation. 3. Community-acquired pneumonia. 4. Diabetes mellitus. RECOMMENDATIONS: Continue current rate-controlling agents with metoprolol and digoxin. Continue Xarelto for her stroke risk reduction. Antibiotics per primary team. Treatment of diabetes mellitus and hyperglycemia per primary team. We will continue to follow along with you. DO LOUIE Chavis/DARIN /[id number]
[2019-08-19] MEDS: RIVAROXABAN 10 MG TABLET PO SCH (16:33)
[2019-08-19] MEDS: PREDNISONE 10 MG TAB PO SCH (16:33)
[2019-08-19] MEDS: PRAVASTATIN 20 MG TAB PO SCH (21:14)
[2019-08-20] VITALS (8 sets, daily range): BP systolic 104–127; BP diastolic 58–83
[2019-08-20] MEDS: ALBUTEROL/IPRATROPIUM 3 ML NEB NEB SCH ×4 (01:18→19:05)
[2019-08-20 05:26] LABS: BASOPHILS % 0.1 % (0.0-1.0); EOSINOPHILS % 0.1 % (0.0-6.0); HEMATOCRIT 34.7 % (34.2-44.1); LYMPHOCYTES # (AUTO) 4.5 (1.0-3.2); LYMPHOCYTES % 47.3 % (18.0-39.1); MEAN CORPUSCULAR HEMOGLOBIN 26.3 pg (28-32); MEAN CORPUSCULAR HGB CONC 31.7 g/dL (31-35); MEAN CORPUSCULAR VOLUME 82.8 fL (81-99); MONOCYTES # (AUTO) 1.1 (0.2-0.8); MONOCYTES % 11.8 % (4.4-11.3); NEUTROPHILS # (AUTO) 3.9 (2.1-6.9); NEUTROPHILS % 40.3 % (38.7-80.0); PLATELET COUNT 152 x10e3/uL (140-360); RED BLOOD COUNT 4.19 x10e6/uL (3.6-5.1)
[2019-08-20 05:42] LABS: ANION GAP 13.1 mmol/L (8-16); CALCIUM 9.1 mg/dL (8.4-10.2); CREATININE, SERUM 1.36 mg/dL (0.57-1.11); POTASSIUM 4.1 mmol/L (3.5-5.1)
[2019-08-20] MEDS ORDERED: SODIUM CHLORIDE 0.9% 500ML 500 ML IV ONE (06:30)
[2019-08-20] MEDS: INSULIN LISPRO 100 UNIT/1 ML 3ML VIAL SQ SCH ×4 (07:30→20:45)
[2019-08-20 08:15] LABS: EOSINOPHILS % (MANUAL) 1 % (0-7); LYMPHOCYTES % (MANUAL) 50 % (19-48); MONOCYTES % (MANUAL) 9 % (3.4-9.0); NEUTROPHILS % (MANUAL) 40 % (40-74); PLATELET ESTIMATE ADEQUATE; PLATELET MORPHOLOGY COMMENT NORMAL; RBC MORPHOLOGY COMMENT NORMAL
[2019-08-20] MEDS: FAMOTIDINE 20 MG TAB PO SCH ×2 (08:31→17:04)
[2019-08-20] MEDS: ASPIRIN 81 MG CHEW TAB PO SCH (08:31)
[2019-08-20] MEDS: PANTOPRAZOLE SOD 40 MG TABEC PO SCH (08:31)
[2019-08-20] MEDS: FERROUS SULFATE 325 MG TAB PO SCH (08:31)
[2019-08-20] MEDS: METOPROLOL TARTRATE 25 MG TAB PO SCH (08:32)
[2019-08-20] MEDS: DIGOXIN 0.125 MG TAB PO SCH (08:32)
[2019-08-20] MEDS: PREDNISONE 10 MG TAB PO SCH ×2 (08:32→17:04)
[2019-08-20] MEDS: OMEGA 3 POLYUNSAT FATTY ACIDS 1000 MG SOFTGEL PO SCH (08:32)
[2019-08-20] MEDS: GUAIFENESIN 600MG/DEXTROMETHORPHAN 30MG TABSR PO SCH ×2 (08:32→17:04)
[2019-08-20] MEDS: ASCORBIC ACID 500 MG TAB PO SCH (08:32)
[2019-08-20] MEDS: CEFTRIAXONE SOD 1 GM/NS 50 ML 50 ML IV SCH (08:35)
[2019-08-20] MEDS: AZITHROMYCIN 500MG/NS 250 ML 250 ML IV SCH (09:30)
--- NOTE | 2019-08-20 11:14 | Consultation ---
DATE OF CONSULTATION: 08/17/2019 Cardiology Consultation. DICTATED FOR: Alec Ramirez MD REQUESTING PHYSICIAN: Kyle Fontaine MD HISTORY OF PRESENT ILLNESS: Mila is a 79-year-old female with a pertinent past medical history of atrial fibrillation, CLL, and also diabetes who reports that she came to the hospital after an ongoing history of 2-1/2 months of cough and also shortness of breath that has progressively gotten worse. She reports that recently she has been treated for bronchitis and also pneumonia. More recently, she was hospitalized in [facility] and discharged on the 24 of July and at that visit she was treated for pneumonia and given antibiotics and nebulizer; however her symptoms have continued and for this reason she sought emergency care. She denies any chills, fever, abdominal pain, nausea, vomiting, dysuria, diarrhea, palpitations, chest pain, dizziness, and syncope. PAST MEDICAL HISTORY: As stated above, CLL, diabetes mellitus type 2, and atrial fibrillation under the care of Dr. Turner with Dr. Sandoval. PAST SURGICAL HISTORY: Tonsillectomy many years ago. FAMILY HISTORY: Noncontributory. SOCIAL HISTORY: Lives at home. Denies smoking or alcohol intake. REVIEW OF SYSTEMS: Negative except as mentioned above. PHYSICAL EXAMINATION: VITAL SIGNS: Temperature 97.1, pulse 75, respiratory rate 19, blood pressure 133/71, and oxygen saturation 97% on room air. GENERAL: Alert and oriented x3. Resting comfortably in bed. Does not appear to be in any acute distress. NECK: Supple. No JVD noted. LUNGS: Clear to auscultation throughout scattered wheezing. No rhonchi, no crackles noted. CARDIOVASCULAR: Regular rate and rhythm. Normal S1, S2. ABDOMEN: Soft and nontender. EXTREMITIES: Lower extremity, no edema. 2+ pedal pulses. CARDIOVASCULAR MEDICATIONS: 1. Lasix 40 mg IV q.12 hours. 2. Fish oil 1000 mg p.o. daily. 3. Metoprolol 25 mg p.o. daily. 4. Digoxin 0.125 mg p.o. daily. 5. Aspirin 81 mg p.o. daily. 6. K-Dur 20 mEq p.o. q.12 hours. 7. Pravastatin 10 mg p.o. at bedtime. 8. Xarelto 15 mg p.o. daily. LABORATORY DATA: WBC 6.41, hemoglobin 11.8, hematocrit 37.9, and platelets 130. Sodium 142, potassium 4.4, BUN 16, and creatinine 1.0. Glucose 220. CT of the chest with right medial lobe pneumonia and J-stent bronchiolitis. Enlarged mediastinal lymph node. Scattered pulmonary nodule measuring up to 9 mm and enlarged main pulmonary artery. TELEMETRY: Atrial fibrillation. ASSESSMENT: 1. Pneumonia. 2. Atrial fibrillation. 3. Diabetes mellitus. 4. History of chronic lymphocytic leukemia. RECOMMENDATIONS: Echocardiogram has been ordered and completed. Recommendations will follow. Continue the above-listed cardiac medications. Monitor rate with telemetry closely. Continue antimicrobial therapy per primary team. We will continue to follow this patient very closely. Thank you for this consultation and allowing us to participate in this patient's care. Dictated by Karie Hoskins NP Alec Ramirez MD [facility]/DARIN /[id number]
[2019-08-20] MEDS: RIVAROXABAN 10 MG TABLET PO SCH (17:04)
[2019-08-20] MEDS: PRAVASTATIN 20 MG TAB PO SCH (21:07)
[2019-08-21] VITALS (8 sets, daily range): BP systolic 125–133; BP diastolic 57–80
[2019-08-21] MEDS: ALBUTEROL/IPRATROPIUM 3 ML NEB NEB SCH ×4 (01:41→22:32)
[2019-08-21] MEDS ORDERED: CEFDINIR300 MG PO (06:27)
[2019-08-21] MEDS ORDERED: PREDNISONE10 MG PO (06:27)
[2019-08-21 07:08] LABS: BASOPHILS % 0.2 % (0.0-1.0); EOSINOPHILS % 0.1 % (0.0-6.0); HEMATOCRIT 35.9 % (34.2-44.1); HEMOGLOBIN 11.3 g/dL (12.0-16.0); LYMPHOCYTES # (AUTO) 4.8 (1.0-3.2); LYMPHOCYTES % 48.4 % (18.0-39.1); MEAN CORPUSCULAR HEMOGLOBIN 26.2 pg (28-32); MEAN CORPUSCULAR HGB CONC 31.5 g/dL (31-35); MEAN CORPUSCULAR VOLUME 83.3 fL (81-99); MONOCYTES # (AUTO) 1.2 (0.2-0.8); MONOCYTES % 12.2 % (4.4-11.3); NEUTROPHILS # (AUTO) 3.8 (2.1-6.9); NEUTROPHILS % 38.7 % (38.7-80.0); PLATELET COUNT 165 x10e3/uL (140-360); RED BLOOD COUNT 4.31 x10e6/uL (3.6-5.1)
[2019-08-21 07:28] LABS: ANION GAP 12.5 mmol/L (8-16); CALCIUM 9.1 mg/dL (8.4-10.2); CREATININE, SERUM 1.13 mg/dL (0.57-1.11); POTASSIUM 4.5 mmol/L (3.5-5.1)
[2019-08-21] MEDS: FAMOTIDINE 20 MG TAB PO SCH ×2 (08:09→16:40)
[2019-08-21] MEDS: INSULIN LISPRO 100 UNIT/1 ML 3ML VIAL SQ SCH ×4 (08:09→21:48)
[2019-08-21] MEDS: PANTOPRAZOLE SOD 40 MG TABEC PO SCH (08:09)
[2019-08-21] MEDS: CEFTRIAXONE SOD 1 GM/NS 50 ML 50 ML IV SCH (08:10)
[2019-08-21] MEDS: GUAIFENESIN 600MG/DEXTROMETHORPHAN 30MG TABSR PO SCH ×2 (08:10→16:40)
[2019-08-21] MEDS: OMEGA 3 POLYUNSAT FATTY ACIDS 1000 MG SOFTGEL PO SCH (08:10)
[2019-08-21] MEDS: FERROUS SULFATE 325 MG TAB PO SCH (08:10)
[2019-08-21] MEDS: ASPIRIN 81 MG CHEW TAB PO SCH (08:10)
[2019-08-21] MEDS: METOPROLOL TARTRATE 25 MG TAB PO SCH ×3 (08:10→21:46)
[2019-08-21] MEDS: DIGOXIN 0.125 MG TAB PO SCH (08:10)
[2019-08-21] MEDS: PREDNISONE 10 MG TAB PO SCH ×2 (08:10→16:40)
[2019-08-21] MEDS: AZITHROMYCIN 500MG/NS 250 ML 250 ML IV SCH (08:10)
[2019-08-21] MEDS: ASCORBIC ACID 500 MG TAB PO SCH (08:11)
[2019-08-21 08:12] LABS: LYMPHOCYTES % (MANUAL) 46 % (19-48); MONOCYTES % (MANUAL) 14 % (3.4-9.0); NEUTROPHILS % (MANUAL) 40 % (40-74)
[2019-08-21] MEDS ORDERED: METOPROLOL TARTRATE INJ 1 MG/ML VIAL IV NR (12:15)
[2019-08-21] MEDS: RIVAROXABAN 10 MG TABLET PO SCH (16:40)
--- NOTE | 2019-08-21 18:36 | Progress Note ---
DATE: 08/21/2019 Cardiology Progress Note SUBJECTIVE: The patient reports palpitations and being anxious. No chest pain or shortness of breath. OBJECTIVE: VITAL SIGNS: She is afebrile. Heart rates are ranging from 130s to 150s intermittently. Blood pressure is 140/84. Oxygen saturations are normal on room air. GENERAL: Well-appearing, in no apparent distress. Alert and oriented x3. CARDIOVASCULAR: She is irregularly irregular, tachycardic. No murmurs. LUNGS: Clear to auscultation. ABDOMEN: Soft, nontender, and nondistended. EXTREMITIES: No edema. LABORATORY DATA: Unavailable to me. TELEMETRY: Monitoring revealed atrial fibrillation with rapid ventricular response. IMPRESSION: 1. Congestive heart failure. 2. Hypertension. 3. Atrial fibrillation. RECOMMENDATIONS: Please give IV metoprolol 5 mg p.r.n. Increase metoprolol tartrate to 25 mg p.o. b.i.d. Maintain monitoring on telemetry. Check electrolytes and correct for potassium greater than 4 and magnesium greater than 2. We will continue to follow along with you. DO LOUIE Chavis/MODL /[id number]
[2019-08-21] MEDS: PRAVASTATIN 20 MG TAB PO SCH (21:33)
[2019-08-22] VITALS: BP 125/65
[2019-08-22] MEDS: ALBUTEROL/IPRATROPIUM 3 ML NEB NEB SCH ×2 (01:30→07:05)
[2019-08-22 04:00] VITALS: BP 121/59
[2019-08-22 05:34] LABS: ANION GAP 13.5 mmol/L (8-16); CALCIUM 8.9 mg/dL (8.4-10.2); CREATININE, SERUM 1.23 mg/dL (0.57-1.11); POTASSIUM 4.5 mmol/L (3.5-5.1)
[2019-08-22] MEDS ORDERED: LOPRESSOR25 MG PO (06:11)
[2019-08-22] MEDS: PANTOPRAZOLE SOD 40 MG TABEC PO SCH (07:36)
[2019-08-22] MEDS: FERROUS SULFATE 325 MG TAB PO SCH (07:36)
[2019-08-22] MEDS: CEFTRIAXONE SOD 1 GM/NS 50 ML 50 ML IV SCH (07:36)
[2019-08-22] MEDS: FAMOTIDINE 20 MG TAB PO SCH (07:36)
[2019-08-22] MEDS: ASPIRIN 81 MG CHEW TAB PO SCH (07:36)
[2019-08-22] MEDS: DIGOXIN 0.125 MG TAB PO SCH (07:38)
[2019-08-22] MEDS: PREDNISONE 10 MG TAB PO SCH (07:38)
[2019-08-22] MEDS: GUAIFENESIN 600MG/DEXTROMETHORPHAN 30MG TABSR PO SCH (07:38)
[2019-08-22] MEDS: ASCORBIC ACID 500 MG TAB PO SCH (07:38)
[2019-08-22] MEDS: OMEGA 3 POLYUNSAT FATTY ACIDS 1000 MG SOFTGEL PO SCH (07:38)
[2019-08-22] MEDS: METOPROLOL TARTRATE 25 MG TAB PO SCH (07:38)
[2019-08-22] MEDS: INSULIN LISPRO 100 UNIT/1 ML 3ML VIAL SQ SCH (07:41)
[2019-08-22] MEDS: AZITHROMYCIN 500MG/NS 250 ML 250 ML IV SCH (07:45)
[2019-08-22 07:48] VITALS: BP 122/74
[2019-08-22 07:54] VITALS: BP 122/74
--- NOTE | 2019-08-23 03:52 | Discharge Summary ---
ADMISSION DIAGNOSES: Right lower lobe pneumonia, present on admission with failed outpatient treatment, pulmonary nodules, atrial fibrillation, hyperlipidemia, type 2 diabetes, [id number] systolic congestive heart failure. DISCHARGE DIAGNOSES: Right lower lobe pneumonia, present on admission with failed outpatient treatment, pulmonary nodules, atrial fibrillation, hyperlipidemia, type 2 diabetes, ipiru-gz-[id number] systolic congestive heart failure, acute kidney injury on chronic kidney disease stage 3. HISTORY: Type 2 diabetes, atrial fibrillation, hyperlipidemia, CLL. SURGICAL HISTORY: Right knee surgery and hysterectomy. FAMILY HISTORY: The patient's mother had diabetes. The patient's sisters had cancer. SOCIAL HISTORY: The patient admits to occasional alcohol use and she says she quit smoking over 40 years ago. HOSPITAL COURSE: A 79-year-old female admits with complaints of orthopnea for 1 week with increased dyspnea on exertion since Sunday. She complains of a cough for the last 2 to 3 months and went to her primary care doctor who gave her prednisone and inhalers, though did not work, so she went to [facility] in the [facility] about 2 weeks ago, where she was given Levaquin and nebs. She stopped taking the Levaquin after discharge due to nausea, vomiting, and muscle aches. On admission, chest x-ray showed no acute cardiopulmonary abnormalities. CT of the abdomen and chest showed scattered pulmonary nodules measuring up to 9 mm, right medial lower lobe pneumonia with adjacent bronchiolitis. The patient was advised to follow up for repeat CAT scan in 3 months. On admission, the patient's EKG showed AFib with RVR. Echo showed an EF of 50%. Blood culture and sputum culture were negative. The patient started on Zithromax, Rocephin, nebs, and steroids. Pulmonology was consulted. After a couple of days of IV antibiotics, the patient is feeling much better. She was also started on Lasix IV, which was taken off due to kidney injury. At the time of discharge, the patient does not qualify for home O2. She will discharge home with new prescriptions for Omnicef, prednisone, and her metoprolol was increased from once a day to q.12 hours. She will follow up with primary care in 1 to 2 weeks, Cardiology and Pulmonology in 1 to 2 weeks. She was advised to repeat the CT of the chest. The patient understands discharge instructions and agrees to plan. Dictated by Liliana M Andriy, DATA SCIENTIST MD DAVID Lal/DARIN /[id number]
== END 2019-08-22 11:06 | disposition home or self-care (01) | DRG 291 ==
LOC: ER 15:07 → ERHOLD 16:55 → MED/SURG 19:21 → OBSVTOIN 08-17 08:56 → MED/SURG2 08-18 18:24
PROVIDERS: ADMIT Internal Medicine; ATTEND Internal Medicine
DX: I13.0 Hypertensive heart and chronic kidney disease with heart failure and stage 1 through stage 4 chronic kidney disease, or unspecified chronic kidney disease (principal); I50.23 Acute on chronic systolic (congestive) heart failure; J18.1 Lobar pneumonia, unspecified organism; J44.1 Chronic obstructive pulmonary disease with (acute) exacerbation; C91.11 Chronic lymphocytic leukemia of B-cell type in remission; N17.9 Acute kidney failure, unspecified; R59.0 Localized enlarged lymph nodes; R91.1 Solitary pulmonary nodule; E11.22 Type 2 diabetes mellitus with diabetic chronic kidney disease; N18.3 Chronic kidney disease, stage 3 (moderate); Z79.4 Long term (current) use of insulin; I48.91 Unspecified atrial fibrillation; R91.8 Other nonspecific abnormal finding of lung field
CPT/HCPCS: 36415; 71046; 71250; 80048; 80053; 80061; 82550; 82553; 82948; 83036; 83605; 83735; 83880; 84443; 84484; 85025; 87040; 87070; 87205; 93005; 93306; 94640; 99284; G0378; J0456; J0696; J1940; J2920; J7040; J7050; J7512; J7799